=== PATIENT | female | born 1990 | race African-American/Black ===

== ENCOUNTER 2022-08-27 21:35 | Emergency (ER) | payer MEDICAID, SELFPAY ==
--- NOTE | ~2022-08-27 | XR_ITS ---
XR chest 2V DATE: 08/27/2022 22:06 INDICATION: Chest pain, left arm pain, intermittent shortness of breath for a week. TECHNIQUE: PA and lateral views COMPARISON: None FINDINGS: Normal heart size. No hilar or mediastinal enlargement. No pulmonary infiltrate or consolid ation, pleural effusion or pulmonary vascular congestion or pneumothorax. IMPRESSION: Negative chest Reviewed, dictated and finalized at location A. IMPRESSION: Negative chest
--- NOTE | 2022-08-27 21:37 | ECG_ITS ---
Measurements Intervals [place] Rate: 93 P: 74 CT: 149 QRS: 28 QRSD: 86 T: 21 QT: 334 QTc: 415 Interpretive Statements SINUS RHYTHM NORMAL ECG NO PREVIOUS ECG AVAILABLE FOR COMPARISON Electronically Signed On 08-28-2022 15:20:01 CDT by Martin Paredes M.D.
[2022-08-27 21:41] VITALS: BP 150/93; PULSE 102; RESP 20; TEMP 35.9; O2SAT 100
[2022-08-27 21:53] LABS: Basophils Absolute Auto 0.1 K/mm3 (0.0-0.1); Basophils Percent Auto 0.6 % (0.2-1.2); Eosinophils Absolute Auto 0.3 K/mm3 (0-0.3); Eosinophils Percent Auto 3.4 % (0-4.4); Hemoglobin 10.3 g/dL (12.0-15.0); Immature Granulocyte Absolute 0.01 K/mm3 (0.00-0.031); Immature Granulocyte Percent A 0.1 % (0-0.5); Lymphocytes Absolute Auto 4.74 K/mm3 (0.9-3.2); Mean Corpuscular HGB Conc 30.3 g/dl (32-36); Mean Corpuscular Hemoglobin 23.4 pg (26-34); Mean Corpuscular Volume 77.1 fl (80-100); Mean Platelet Volume 9.4 fl (7.4-10.4); Monocytes Absolute Auto 0.5 K/mm3 (0.1-0.6); Monocytes Percent Auto 6.6 % (2.6-8.5); Neutrophils Absolute Auto 2.6 K/mm3 (1.3-6.7); Neutrophils Percent Auto 31.3 % (45.5-73.1); Platelet Count Result 452 k/mm3 (150-375); Red Blood Count 4.41 M/mm3 (4.2-5.4); Red Cell Distribution Width 17.2 % (11.5-14.5); White Blood Count 8.2 K/mm3 (4.5-10.0)
[2022-08-27 22:03] LABS: Alanine Aminotransferase 23 U/L (6-35); Albumin Level 4.7 g/dL (3.5-5.1); Alkaline Phosphatase 93 U/L (38-126); Anion Gap 9 mmol/L (8-16); Aspartate Amino Transferase 27 U/L (14-36); Bilirubin,Total 0.5 mg/dL (0.2-1.3); Blood Urea Nitrogen 7 mg/dL (7-17); Calcium 8.9 mg/dL (8.4-10.2); Carbon Dioxide 23 mmol/L (22-30); Chloride 106 mmol/L (98-107); Estimated CRCL calculation 93 ml/min; Estimated Glomerular Filt Rate > 60; Glucose 91 mg/dL (65-110); Lipase 107 U/L (23-300); Potassium 3.9 mmol/L (3.4-5.0); Sodium 138 mmol/L (137-145)
[2022-08-27 22:04] LABS: INR 1.1; Prothrombin Time 13.6 Seconds (11.1-14.7)
[2022-08-27 22:05] LABS: Partial Thromboplastin Time 36.8 SECONDS (22.3-36.8)
[2022-08-27 22:15] LABS: Troponin I < 0.012 ng/mL (0.000-0.034)
--- NOTE | 2022-08-27 23:35 | PC.NURSE ---
patient states she is tired of waiting and left from triage area
== END 2022-08-27 23:48 | disposition left against medical advice (07) ==
PROVIDERS: Emergency Provider Emergency Medicine
DX: R07.9 Chest pain, unspecified (principal)
CPT/HCPCS: 36415; 71046; 80053; 83690; 84484; 85025; 85610; 85730; 93005; 99199

== ENCOUNTER 2024-05-10 14:07 | Outpatient (CLI) | payer OTHER, SELFPAY ==
--- NOTE | ~2024-05-10 | US_ITS ---
EXAMINATION: US OB <= 14 weeks fetus DATE: 05/10/2024 14:40 INDICATION: Amenorrhea, unspecified. TECHNIQUE: Real-time transabdominal pelvic ultrasound was performed. COMPARISON: None. FINDINGS: The uterus measures 12.0 x 7.9 x 9.7 cm. There is an intrauterine gestational sac. The crown ru mp length measures 5.4 cm, which correlates with an estimated gestational age of 12 weeks and 0 day(s ) (+/-) 1 week(s) and 1 day(s). heart motion is identified measuring 150 beats per minute (bpm) by M-mode Doppler. The right ovary measures 4.0 x 1.7 x 2.7 cm. The left ovary measures 5.2 x 1.8 x 4.1 cm. There is no free fluid in the pelvis. IMPRESSION: 1. Single living intrauterine gestation with estimated date of delivery of 11/22/2024. Reviewed, dictated and finalized at location A. REPAIRER IMPRESSION: 1. Single living intrauterine gestation with estimated date of delivery of 11/22.
== END 2024-05-10 14:08 | disposition home or self-care (01) ==
PROVIDERS: PCP Emergency Medicine; Visit Provider Nurse Practitioner Obstetrics & Gynecology
DX: Z34.91 Encounter for supervision of normal pregnancy, unspecified, first trimester (principal); Z3A.12 12 weeks gestation of pregnancy
CPT/HCPCS: 76801

== ENCOUNTER 2024-06-14 12:30 | Outpatient (CLI) | payer OTHER, SELFPAY ==
[2024-06-14 13:01] LABS: Basophils Percent Auto 0.4 % (0.2-1.2); Eosinophils Absolute Auto 0.1 K/mm3 (0-0.3); Eosinophils Percent Auto 1.5 % (0-4.4); Hematocrit 34.6 % (37.0-47.0); Immature Granulocyte Absolute 0.03 K/mm3 (0.00-0.031); Immature Granulocyte Percent A 0.4 % (0-0.5); Lymphocytes Absolute Auto 2.73 K/mm3 (0.9-3.2); Mean Corpuscular HGB Conc 31.8 g/dl (32-36); Mean Corpuscular Hemoglobin 26.3 pg (26-34); Mean Corpuscular Volume 82.8 fl (80-100); Mean Platelet Volume 9.8 fl (7.4-10.4); Monocytes Absolute Auto 0.6 K/mm3 (0.1-0.6); Monocytes Percent Auto 8.3 % (2.6-8.5); Neutrophils Absolute Auto 4.1 K/mm3 (1.3-6.7); Neutrophils Percent Auto 53.4 % (45.5-73.1); Platelet Count Result 342 k/mm3 (150-375); Red Blood Count 4.18 M/mm3 (4.2-5.4); Red Cell Distribution Width 17.7 % (11.5-14.5); White Blood Count 7.6 K/mm3 (4.5-10.0)
[2024-06-14 13:09] LABS: Add Urine Microscopic? YES; Appearance Urine Cloudy (Clear); Bacteria Urine 3+ /hpf; Bilirubin Urine Negative (Negative); Blood Urine Negative (Negative); Color Urine Dark Yellow (Yellow); Glucose Urine UA Negative (Negative); Ketones Urine Trace mg/dL (Negative); Leukocyte Esterase Ur Trace LEU/UL (Negative); Nitrate Urine Negative (Negative); Non Pathogenic Casts 0-2; Protein Urine Trace mg/dL (Negative); RBC Urine 0-2 /hpf (0-2); Specific Grav Ur 1.034 (1.001-1.035); Squamous Epithelial Cell Urine Many /hpf (Few)
[2024-06-14 13:43] LABS: Hepatitis B Surface Antigen Negative (Negative); Rubella IgG Antibody 40.4 IU/ML
[2024-06-14 13:51] LABS: HIV 1/2 Ab P24 Ag Result Negative (Negative)
[2024-06-14 14:00] LABS: Hepatitis C Virus Antibody Negative (Negative)
[2024-06-14 14:25] LABS: Rapid Plasma Reagin Non-Reactive (NonReactive)
--- OUTSIDE RECORDS SUMMARY | 2024-06-15 04:53 | XMS_ITS | CONTINUITY OF CARE DOCUMENT ---
Author Name melly pickard Address Unknown Organization [facility] Address [address] [place] [address] Phone [phone] Care Team Providers Care Edging Machine Operator Name Role Phone melly pickard Unavailable Unavailable INSURANCE PROVIDERS Payer name Policy type / Coverage type [place] red democrat ID [id number] PAY
--- OUTSIDE RECORDS SUMMARY | 2024-06-15 04:53 | XMS_ITS | Clinical Summary ---
Author Organization [facility] Address [address] [place] [address] Phone Care Team Providers Care Hot Roller Name Role Phone Provider, None Primary Care Provider Unavailabl e Allergies No known active allergies Medications No known medications Social History Tobacco Use Types Packs/Day Years Used Date Smoking Tobacco: Every Day Cigarettes Smokeless Tobacco: Never Alcohol Use Standard Drinks/Week Comments Yes 0 (1 standard drink = 0.6 oz pur e alcohol) socially Comments No Sex and Gender Information Value Date Recorded Sex Assigned at Not on file Legal Sex Female 8:06 AM CDT Gender Identity Not on file Sexual Orientation Not on file Last Filed Vital Signs Vital Sign Reading Time Taken Comments Blood Pressure 116/82 10/27/2021 12:30 PM CDT Pulse 88 10/27/2021 12:30 PM CDT Temperature 36.1 ??C (97 ??F) 10/27/2021 8:16 AM CDT Respiratory Rate 19 10/27/2021 12:30 PM CDT Oxygen Saturation 100% 10/27/2021 12:30 PM CDT Inhaled Oxygen Concentration - - Weight 83.9 kg (185 lb) 10/27/2021 8:08 AM CDT Height 175.3 cm (5' 9 ) 10/27/2021 8:08 AM CDT Body Mass Index 27.32 10/27/2021 8:08 AM CDT Plan of Treatment Health Maintenance Due Date Last Done Comments Hepatitis C Virus (HCV) Screening 1988 TdaP Immunization 1988 Hepatitis B Immunization (1 of 3 - 19+ 3-dose series) 2007 Pap Smear 2009 Cervical Cancer Screening (CCS) 2018 HPV/Cotest 2018 Influenza Immunization (#1) 2024 SARS-COV-2 Immunization ( - 2023- season) 2024 Respiratory Syncytial Virus (RSV) Immunization (Adult) (1 - 1-dose 75+ series) 2063 DTaP/Tdap/Td Immunization Discontinued 2004, 01/26/1994, 03/24/1989, Additional history exists Meningococcal Immunization (ACWY) Aged Out No longer eligible based on patient's age to complete this topic Pneumococcal Immunization Combined Aged Out No longer eligible based on patient's age to complete this topic Rotavirus Immunization Aged Out No lo nger eligible based on patient's age to complete this topic Insurance MEDICAID [employer] Care Teams Hot Roller Relationship Specialty Start Date End Date Provider, None [place] PCP - General 10/27/21
--- OUTSIDE RECORDS SUMMARY | 2024-06-15 04:53 | XMS_ITS | Clinical Summary ---
Author Organization [facility] Address [address] [place] [address]. [place] [address] [place] [address] Care Team Providers Care Embosser Operator Name Role Phone None, Provider MD Primary Care Provider Unavaila ble Allergies No known active allergies Medications No known medications Social History Tobacco Use Types Packs/Day Years Used Date Smoking Tobacco: Every Day Cigarettes Smokeless Tobacco: Never Alcohol Use Standard Drinks/Week Comments Never 0 (1 standard drink = 0.6 oz pur e alcohol) Comments No Sex and Gender Information Value Date Recorded Sex Assigned at Not on file Legal Sex Female 8:23 PM CDT Gender Identity Not on file Sexual Orientation Not on file Last Filed Vital Signs Vital Sign Reading Time Taken Comments Blood Pressure 133/70 10/16/2021 7:26 PM CDT Pulse 81 10/16/2021 7:26 PM CDT Temperature 36.7 ??C (98 ??F) 10/16/2021 3:08 PM CDT Respiratory Rate 16 10/16/2021 3:08 PM CDT Oxygen Saturation 98% 10/16/2021 7:26 PM CDT Inhaled Oxygen Concentration - - Weight 86.2 kg (190 lb) 10/16/2021 3:08 PM CDT Height 175.3 cm (5' 9 ) 10/16/2021 3:08 PM CDT Body Mass Index 28.06 10/16/2021 3:08 PM CDT Plan of Treatment Health Maintenance Due Date Last Done Comments Cervical Cancer Screening Pap Smear (Age 30 to 64) Every 3 Years 1988 Annual Physical 1991 Pneumococcal Vaccine: Pediatrics (0 to 5 Years) and At-Risk Patients (6 to 64 Years) (1 of 2 - PCV) 1994 DTaP, Tdap and Td Vaccines (5 - Tdap) 01/23/2005 01/22/2005, 01/26/1994, 03/24/1989, Additional history exists Hepatitis C 2006 Hepatitis B Vaccines (1 of 3 - 19+ 3-dose series) 2007 Cervical Cancer Screening Pap with HPV Testing (Age 30 to 64) Every 5 Years 2018 Cervical Cancer Screening with HPV 2018 COVID-19 Vaccine (2023- season) 2024 Influenza Adult (#1) 2024 HPV Vaccines Aged Out No longer eligi ble based on patient's age to complete this topic Meningococcal Vaccine Aged Out No danielle neptali eligible based on patient's age to complete this topic RSV Immunizations Under 20 Months Aged Out No longer eligible based on patient's age to complete this topic Insurance Care Teams Embosser Operator Relationship Specialty Start Date End Date None, Provider, PCP - General 10/16/21
--- OUTSIDE RECORDS SUMMARY | 2024-06-15 04:53 | XMS_ITS | Referral Summary ---
Author Organization [address] Address [address] [place] [id number] Care Team Providers Care Liability Analyst Name Role Phone Unknown, Notinfile Primary Care Provider Unavail able Allergies No known active allergies Medications buPROPion XL (WELLBUTRIN XL) 150 mg 24 hr tablet Take 1 tablet (150 mg total) by mouth every morning 03/18/2023 Active Active Problems No known active problems Social History Tobacco Use Types Packs/Day Years Used Date Smoking Tobacco: Never Assessed Comments Unknown Sex and Gender Information Value Date Recorded Sex Assigned at Not on file Legal Sex Female 12:05 PM SAND MILL OPERATOR FACING SAND Gender Identity Not on file Sexual Orientation Not on file Last Filed Vital Signs Vital Sign Reading Time Taken Comments Blood Pressure 132/82 05/02/2023 9:22 AM SAND MILL OPERATOR FACING SAND Pulse 86 05/02/2023 9:22 AM SAND MILL OPERATOR FACING SAND Temperature 36.8 ??C (98.3 ??F) 05/02/2023 9:22 AM CS T Respiratory Rate 18 05/02/2023 9:22 AM SAND MILL OPERATOR FACING SAND Oxygen Saturation 100% 05/02/2023 9:22 AM SAND MILL OPERATOR FACING SAND Inhaled Oxygen Concentration - - Weight 115.3 kg (254 lb 4.8 oz) 05/02/2023 9:22 AM SAND MILL OPERATOR FACING SAND Height 175.3 cm (5' 9.02 ) 05/02/2023 9:22 AM CS T Body Mass Index 37.54 05/02/2023 9:22 AM SAND MILL OPERATOR FACING SAND Plan of Treatment Not on file Insurance [facility] CHOICE PLUS [facility] H[facility]PPO Address: [place] [address] Care Teams Liability Analyst Relationship Specialty Start Date End Date Unknown, Notinfile PCP - General 05/02/23
--- OUTSIDE RECORDS SUMMARY | 2024-06-15 04:53 | XMS_ITS | Clinical Summary ---
Author Organization [address] Address [address] [place] [id number] Care Team Providers Care Program Mgr Name Role Phone Unknown, Notinfile Primary Care [...] on file Legal Sex Female 12:05 PM DISTILLING DEPARTMENT SUPERVISOR Gender Identity Not on file Sexual Orientation Not on file Obstetrics History Last Filed Vital Signs Vital Sign Reading Time Taken Comments Blood Pressure 132/82 05/02/2023 9:22 AM DISTILLING DEPARTMENT SUPERVISOR Pulse 86 05/02/2023 9:22 AM DISTILLING DEPARTMENT SUPERVISOR Temperature 36.8 ??C (98.3 ??F) 05/02/2023 9:22 AM CS T Respiratory Rate 18 05/02/2023 9:22 AM DISTILLING DEPARTMENT SUPERVISOR Oxygen Saturation 100% 05/02/2023 9:22 AM DISTILLING DEPARTMENT SUPERVISOR Inhaled Oxygen Concentration - - Weight 115.3 kg (254 lb 4.8 oz) 023 9:22 AM DISTILLING DEPARTMENT SUPERVISOR Height 175.3 cm (5' 9.02 ) 05/02/2023 9:22 AM CS T Body Mass Index 37.54 05/02/2023 9:22 AM DISTILLING DEPARTMENT SUPERVISOR Plan of Treatment Health Maintenance Due Date Last Done Comments Cervical Cancer Screening 1988 Depression Screening 1988 Hepatitis C Screening 1988 Varicella Vaccines (1 of 2 - 13+ 2-dose series) 2001 DTaP/Tdap/Td Vaccine (5 - Tdap) 01/23/2005 01/22/2005, 01/26/1994, 03/24/1989, Additional history exists Hepatitis B Screening 2006 Regular Well Visit/Exam 18-64 2006 Influenza Vaccine (#1) 2024 HPV Vaccines Aged Out No longer eligi ble based on patient's age to complete this topic Pneumococcal vaccine <65 Aged Out No longer eligible based on patient's age to complete this topic Insurance [facility] CHOICE PLUS Care Teams Program Mgr Relationship Specialty Start Date End Date Unknown, Notinfile PCP - General 05/02/23
[2024-06-17 07:34] LABS: Hematocrit 35.6 % (35.0-45.0); Hemoglobin 11.1 g/dL (11.7-15.5); MCH 26.6 pg (27.0-33.0); MCV 85.2 fL (80.0-100.0); RDW 17.9 % (11.0-15.0); Red Blood Cell Count 4.18 Million/uL (3.80-5.10)
== END 2024-06-14 12:31 | disposition home or self-care (01) ==
LOC: ANHLAB 12:31
PROVIDERS: Visit Provider Obstetrics & Gynecology
DX: Z34.90 Encounter for supervision of normal pregnancy, unspecified, unspecified trimester (principal); Z3A.00 Weeks of gestation of pregnancy not specified
CPT/HCPCS: 36415; 81001; 83021; 85025; 86592; 86703; 86762; 86787; 86803; 86850; 86900; 86901; 87086; 87340; G0432

== ENCOUNTER 2024-09-24 09:15 | Outpatient (CLI) | payer OTHER, SELFPAY ==
[2024-09-24 09:42] LABS: Basophils Percent Auto 0.2 % (0.2-1.2); Eosinophils Absolute Auto 0.2 K/mm3 (0-0.3); Eosinophils Percent Auto 1.8 % (0-4.4); Hematocrit 27.9 % (37.0-47.0); Hemoglobin 8.7 g/dL (12.0-15.0); Immature Granulocyte Absolute 0.12 K/mm3 (0.00-0.031); Immature Granulocyte Percent A 1.4 % (0-0.5); Lymphocytes Absolute Auto 2.43 K/mm3 (0.9-3.2); Lymphocytes Percent Auto 29.3 % (18.3-44.2); Mean Corpuscular HGB Conc 31.2 g/dl (32-36); Mean Corpuscular Hemoglobin 25.4 pg (26-34); Mean Corpuscular Volume 81.6 fl (80-100); Mean Platelet Volume 9.2 fl (7.4-10.4); Monocytes Absolute Auto 0.6 K/mm3 (0.1-0.6); Monocytes Percent Auto 6.7 % (2.6-8.5); Neutrophils Percent Auto 60.6 % (45.5-73.1); Platelet Count Result 343 k/mm3 (150-375); Red Blood Count 3.42 M/mm3 (4.2-5.4); Red Cell Distribution Width 14.6 % (11.5-14.5); White Blood Count 8.3 K/mm3 (4.5-10.0)
[2024-09-24 09:45] VITALS: BP 128/71; PULSE 86
--- OUTSIDE RECORDS SUMMARY | 2024-09-24 09:50 | XMS_ITS | Clinical Summary ---
Author Organization [facility] Address [address] [place] [address] Phone Care Team Providers Care Battery Vent Plug Inserter Name Role Phone Provider, None Primary Care [...] 88 10/27/2021 12:30 PM CDT Temperature 36.1 C (97 F) 10/27/2021 8:16 AM CDT Respiratory Rate 19 [...] of 3 - 19+ 3-dose series) 2007 Influenza Immunization (#1) 2024 SARS-COV-2 Immunization (2023-25 season) 2024 Respiratory Syncytial Virus (RSV) Immunization [...] Insurance MEDICAID [employer] Care Teams Battery Vent Plug Inserter Relationship Specialty Start Date End Date Provider, None [place] PCP - General 10/27/21
--- OUTSIDE RECORDS SUMMARY | 2024-09-24 09:50 | XMS_ITS | CONTINUITY OF CARE DOCUMENT ---
Author Name melly pickard Address Unknown Organization [facility] Address [address] [place] [address] Phone [phone] Care Team Providers Care Supervisor In Charge Name Role Phone melly pickard Unavailable Unavailable INSURANCE PROVIDERS Payer name Policy type / Coverage type [place] red libertarian ID [id number] PAY
--- OUTSIDE RECORDS SUMMARY | 2024-09-24 09:50 | XMS_ITS | Clinical Summary ---
Author Organization [facility] Address [address] [place] [id number] Care Team Providers Care Uniform Designer Name Role Phone None, Provider MD Primary [...] 81 10/16/2021 7:26 PM CDT Temperature 36.7 C (98 F) 10/16/2021 3:08 PM CDT Respiratory Rate 16 [...] Every 3 Years 1988 Annual Physical 1991 DTaP, Tdap and Td Vaccines (5 - Tdap) 01/23/2005 01/22/2005, 01/26/1994, 03/24/1989, Additional history exists Hepatitis C 2006 Hepatitis B Vaccines (1 of 3 - 19+ 3-dose series) 2007 Pneumococcal Vaccine: Pediatrics (0 to 5 Years) and At-Risk Patients (6 to 49 Years) (1 of 2 - PCV) 2007 Cervical Cancer Screening Pap with HPV Testing (Age 30 to 64) Every 5 Years 2018 Cervical Cancer Screening with HPV 2018 COVID-19 Vaccine ( season) 2024 HPV Vaccines Aged Out No longer eligi ble based on patient's age to complete this topic Meningococcal B Vaccine Aged Out No l onger eligible based on patient's age to complete this topic Meningococcal Vaccine Aged Out No danielle neptali eligible based on patient's age to complete this topic RSV Immunizations Under 20 Months Aged Out No longer eligible based on patient's age to complete this topic Insurance Care Teams Uniform Designer Relationship Specialty Start Date End Date None, Provider, PCP - General 10/16/21
--- OUTSIDE RECORDS SUMMARY | 2024-09-24 09:50 | XMS_ITS | Clinical Summary ---
Author Organization [facility] Address [address] [place] [address] Phone Care Team Providers Care Woodworking Machine Feeder Name Role Phone Unavailable Primary Care Provider Unavailabl e Encounters Date Type Department Care Team Description 09/04/2024 External Device Data STL ABSTRACTION Provider, Abstract 08/14/2024 External Device Data STL ABSTRACTION Provider, Abstract 08/14/2024 External Device Data STL ABSTRACTION Provider, Abstract 07/24/2024 External Device Data STL ABSTRACTION Provider, Abstract 07/19/2024 1:45 PM CUSTOMER ACCOUNT EXECUTIVE - 07/19/2024 11:59 PM CUSTOMER ACCOUNT EXECUTIVE Hospital Encounter [facility] Maternal and Health [facility] [address] [place] [phone] Quintin Corey MD Discharge Disposition: Home or Self Care from Last 3 Months Social History Tobacco Use Types Packs/Day Years Used Date Smoking Tobacco: Never Assessed Comments Unknown Sex and Gender Information Value Date Recorded Sex Assigned at Not on file Legal Sex Female 11:51 PM CDT Gender Identity Not on file Sexual Orientation Not on file Plan of Treatment Health Maintenance Due Date Last Done Comments DTAP/TDAP/TD VACCINES (1 - Tdap) 2007 HEPATITIS B VACCINES (1 of 3 - 19+ 3-dose series) 2007 HPV/Cotest (21-29) 2009 CERVICAL CANCER SCREENING 2018 HPV/Cotest (30-65) 2018 PAP SMEAR 2018 INFLUENZA VACCINE (#1) 2023 HPV VACCINES Aged Out No longer eligi ble based on patient's age to complete this topic Procedures Procedure Name Priority Date/Time Associated Diagnosis Comments US OB DETAIL SINGLE GEST Routine 07/19/2024 3:06 PM CUSTOMER ACCOUNT EXECUTIVE Advanced maternal age in multigravida, second trimester screening for malformation using ultrasonics from Last 3 Months Results * US OB DETAIL SINGLE GEST (07/19/2024 3:06 PM CUSTOMER ACCOUNT EXECUTIVE) Anatomical Region Laterality Modality Pelvis Ultrasound 07/19/2024 1:58 PM CUSTOMER ACCOUNT EXECUTIVE Narrative 07/19/2024 3:10 PM CUSTOMER ACCOUNT EXECUTIVE STL COMP ----- Pat. Name: JESUSITA SANTA Study Date: 07/19/2024 1:58pm Pat. NO: [id number] Referring MD: QUINTIN COREY MD Site: [place] [facility] Policy Analyst: Bree Dahl RDMS : 1990 Age: 34 ----- INDICATION ----- Anatomy Survey Maternal Obesity (BMI<40) Complicating Advanced Maternal Age (AMA), Multigravida CODING ----- Diagnoses Z3A.21: Weeks of gestation O09.892: Supervision of other high risk pregnancies Z36.3: Encounter for screening for malformations Z3A.21: Weeks of gestation O99.212: Obesity complicating O09.522: Supervision of elderly multigravida Procedures 83173: Ultrasound, uterus, real time with image documentation, and maternal evaluation plus detailed anatomic examination, transabdominal approach HISTORY ----- OB History 4. Para 2 MATERNAL ASSESSMENT ----- Physical Exam Initial weight 104 kg, 230 lb. Initial BMI 33.97 kg/m METHOD ----- Transabdominal ultrasound examination ----- Hylton . Number of fetuses: 1 DATING ----- Method of dating: based on stated ARIANA GA by prior assessment 21 w + 2 d ARIANA by prior assessment: 11/27/2024 Ultrasound examination on: 07/19/2024 GA by U/S based upon: AC, BPD, EFW, Femur, HC GA by U/S 21 w + 5 d ARIANA by U/S: 11/24/2024 Assigned: based on stated ARIANA, selected on 07/19/2024 Assigned GA 21 w + 2 d Assigned ARIANA: 11/27/2024 BIOMETRY ----- BPD 50.6 mm 21w 2d 50% Hadlock OFD 71.3 mm 23w 5d 98% Madeleine HC 195.9 mm 21w 6d 63% Hadlock Cerebellum tr 21.6 mm 21w 1d 37% Araujo Nuchal fold 5.0 mm AC 168.0 mm 21w 6d 60% Hadlock Femur 37.8 mm 22w 1d 68% Hadlock Humerus 37.7 mm 23w 2d 96% Madeleine HC / AC 1.17 54% Nicolaides Weight Calculation: EFW 459 g 21w 5d 75% Hadlock EFW (lb,oz) 1 lb 0 oz EFW by Hadlock ([id number]) Head / Face / Neck Biometry: Laboratory Courier 3.5 mm CM 4.8 mm 33% Nicolaides Inner IOD 14.5 mm Nasal 7.2 mm bone Extremities / Bony Struc Biometry: FL / BPD 0.75 FL / HC 0.19 FL / AC 0.23 Tibia 31.7 mm 21w 5d 67% Madeleine GENERAL EVALUATION ----- Cardiac activity present. FHR 126 bpm. movements: present. Presentation: breech Placenta: Placental site: posterior Umbilical cord: Cord vessels: 3 vessel cord. Insertion site: placental insertion: normal Amniotic fluid: Amount of AF: normal amount. MVP 3.1 cm ANATOMY ----- The following structures appear normal: Head / Neck Cranium. Lateral ventricles. Choroid plexus. Midline falx. Cavum septi pellucidi. Cerebellum. Cisterna magna. Thalami. Nuchal fold. Face Lips. Profile. Nose. Palate. Orbits. Heart / Thorax 4-chamber view. RVOT view. LVOT view. 3-vessel view. 7-uzousc-edyhcde view. Situs. Aortic arch view. Ductal arch view. Superior vena cava. Inferior vena cava. High short axis view. Cardiac rhythm. Diaphragm. Abdomen Abdominal wall. Cord insertion. Stomach. Kidneys. Bladder. Genitals. Spine Cervical spine. Thoracic spine. Lumbar spine. Sacral spine. Extremities / Arms. Right hand. Left hand. Legs. Right foot. Left foot. Skeleton sex: female. MATERNAL STRUCTURES ----- Cervix Visualized Approach - Transabdominal: Cervical length 42.0 mm Right Ovary Normal Size 31 mm x 22 mm x 20 mm. Vol 7.3 cm Left Ovary Normal Size 31 mm x 28 mm x 18 mm. Vol 8.4 cm GROWTH OVERVIEW ----- Exam date GA BPD (mm) HC (mm) AC (mm) FL (mm) HL (mm) EFW (g) 07/19/2024 21w 2d 50.6 50% 195.9 63% 168.0 60% 37.8 68% 37.7 96% 459 75% COMMENT ----- Patient's name and date of were verified by the health sanitarian before the exam IMPRESSION ----- IUP at 21w 2d AGA growth with EFW 459 g (75%) No major structural malformations are identified within the limits of ultrasound. No soft markers of aneuploidy are visualized. Normal amniotic fluid volume, MVP 3.1 cm Normal cervical length, 42 mm Placenta is posterior with no previa Recommendations: - Recommend growth at 32-36 weeks and as otherwise clinically indicated (location at discretion of primary provider) Procedure Note Genet Ibarra MD - 07/19/2024 STL COMP ----- Pat. Name:Carolee SANTA Date:07/19/2024 1:58pm Pat. NO: [id number] MD:QUINTIN COREY MD [facility]Bree Dahl RDMS :1990Age:34 ----- INDICATION ----- Anatomy Survey Maternal Obesity (BMI<40) Complicating Advanced Maternal Age (AMA), Multigravida CODING ----- Diagnoses Z3A.21: Weeks of gestation O09.892: Supervision of other high riskpregnancies Z36.3: Encounter for screening formalformations Z3A.21: Weeks of gestation O99.212: Obesity complicating O09.522: Supervision of elderly multigravida Procedures [id number]: Ultrasound, uterus, real time withimage documentation, and maternal evaluation plus detailed anatomic examination,transabdominal approach HISTORY ----- OB History 4. Para 2 MATERNAL ASSESSMENT ----- Physical Exam Initial weight 104 kg, 230 lb. Initial BMI 33.97kg/m METHOD ----- Transabdominal ultrasound examination ----- Hylton . Number of fetuses: 1 DATING ----- Method of dating:based on stated ARIANA GA by prior [id number] w + 2 d ARIANA by prior assessment:11/27/2024 Ultrasound examination on:07/19/2024 GA by U/S based upon:AC, BPD, EFW, Femur, HC GA by U/S21 w + 5 d ARIANA by U/S:11/24/2024 Assigned:based on stated ARIANA, selected on 07/19/2024 Assigned GA21 w + 2 d Assigned ARIANA:11/27/2024 BIOMETRY ----- BPD 50.6 mm 21w 2d50% Hadlock OFD 71.3 mm 23w 5d98% Madeleine HC 195.9 mm 21w 6d63% Hadlock Cerebellum tr 21.6 mm 21w 1d37% Araujo Nuchal fold 5.0 mm AC 168.0 mm 21w 6d60% Hadlock Femur 37.8 mm 22w 1d68% Hadlock Humerus 37.7 mm 23w 2d96% Madeleine HC / AC 1.17 54%Nicolaides Weight Calculation: EFW 459 g 21w 5d 75%Hadlock EFW (lb,oz) 1 lb 0 oz EFW by Hadlock ([id number]) Head / Face / Neck Biometry: Laboratory Courier 3.5 mm CM 4.8 mm 33%Nicolaides Inner IOD 14.5 mm Nasal 7.2 mm bone Extremities / Bony Struc Biometry: FL / BPD 0.75 FL / HC 0.19 FL / AC 0.23 Tibia 31.7 mm 21w 5d 67%Madeleine GENERAL EVALUATION ----- Cardiac activity present. FHR 126 bpm. movements: present.Presentation: breech Placenta: Placental site: posterior Umbilical cord: Cord vessels: 3 vessel cord. Insertion site: placentalinsertion: normal Amniotic fluid: Amount of AF: normal amount. MVP 3.1 cm ANATOMY ----- The following structures appear normal: Head / Neck Cranium. Lateral ventricles. Choroid plexus.Midline falx. Cavum septi pellucidi. Cerebellum. Cisterna magna. Thalami. Nuchal fold. Face Lips. Profile. Nose. Palate. Orbits. Heart / Thorax 4-chamber view. RVOT view. LVOT view. 3-vesselview. 8-wyplht-scttttw view. Situs. Aortic arch view. Ductal arch view. Superior vena cava. Inferiorvena cava. High short axis view. Cardiac rhythm. Diaphragm. Abdomen Abdominal wall. Cord insertion. Stomach. Kidneys.Bladder. Genitals. Spine Cervical spine. Thoracic spine. Lumbar spine.Sacral spine. Extremities / Arms. Right hand. Left hand. Legs. Right foot.Left foot. Skeleton sex: female. MATERNAL STRUCTURES ----- Cervix Visualized Approach - Transabdominal: Cervical length 42.0mm Right Ovary Normal Size 31 mm x 22 mm x 20 mm. Vol 7.3 cm Left Ovary Normal Size 31 mm x 28 mm x 18 mm. Vol 8.4 cm GROWTH OVERVIEW ----- Exam date GA BPD (mm) HC (mm) AC (mm) FL(mm) HL (mm) EFW (g) 07/19/2024 21w 2d 50.6 50% 195.9 63% 168.0 60%37.8 68% 37.7 96% 459 75% COMMENT ----- Patient's name and date of were verified by the health sanitarian beforethe exam IMPRESSION ----- IUP at 21w 2d AGA growth with EFW 459 g (75%) No major structural malformations are identified within the limitsof ultrasound. No soft markers of aneuploidy are visualized. Normal amniotic fluid volume, MVP 3.1 cm Normal cervical length, 42 mm Placenta is posterior with no previa Recommendations: - Recommend growth at 32-36 weeks and as otherwise clinically indicated(location at discretion of primary provider) us Quintin Corey MD ORDERABLES Final Result from Last 3 Months Insurance [facility] [id number]
[2024-09-24 09:52] LABS: Alanine Aminotransferase 47 U/L (6-35); Albumin Level 3.5 g/dL (3.5-5.1); Alkaline Phosphatase 99 U/L (38-126); Anion Gap 7 mmol/L (4-12); Aspartate Amino Transferase 33 U/L (14-36); Bilirubin,Total 0.2 mg/dL (0.2-1.3); Blood Urea Nitrogen 5 mg/dL (7-17); Calcium 8.1 mg/dL (8.4-10.2); Carbon Dioxide 19 mmol/L (22-30); Chloride 108 mmol/L (98-107); Estimated Glomerular Filt Rate > 60; Glucose 95 mg/dL (65-110); Potassium 3.6 mmol/L (3.4-5.0); Sodium 134 mmol/L (137-145); Uric Acid 3.2 mg/dL (2.5-7.5)
[2024-09-24 10:00] VITALS: BP 123/73; PULSE 87
[2024-09-24 10:08] LABS: Add Urine Microscopic? YES; Appearance Urine Clear (Clear); Bacteria Urine Rare /hpf; Bilirubin Urine Negative (Negative); Blood Urine Negative (Negative); Color Urine Yellow (Yellow); Glucose Urine UA Negative (Negative); Ketones Urine Negative (Negative); Leukocyte Esterase Ur Trace LEU/UL (Negative); Nitrate Urine Negative (Negative); Non Pathogenic Casts 0-2; Protein Urine Negative (Negative); RBC Urine 0-2 /hpf (0-2); Specific Grav Ur 1.004 (1.001-1.035); Squamous Epithelial Cell Urine Moderate /hpf (Few); Urobilinogen Urine 0.2 mg/dL (<2.0); pH Urine 6.5 (5.0-9.0)
[2024-09-24 10:12] LABS: Creatinine Urine 42.6 mg/dL; Total Protein Urine Random 16 mg/dL; Ur Ttl Prot Creatinine Ratio 0.38 mg/mg (0-0.20)
[2024-09-24 10:15] VITALS: BP 124/75; PULSE 87
[2024-09-24 10:30] VITALS: BP 123/65; PULSE 86
--- NOTE | 2024-09-24 10:32 | PC.NURSE ---
Dr Marie informed BP and lab results. Ok to sc home with PIH precautions and a 24 hour urine collections.
[2024-09-24 10:42] VITALS: BMI 38.5
== END 2024-09-24 10:42 | disposition home or self-care (01) ==
LOC: ANHOBOP 09:19 → ANHOBPP 09:25
PROVIDERS: Visit Provider Obstetrics & Gynecology
DX: O13.9 Gestational [pregnancy-induced] hypertension without significant proteinuria, unspecified trimester (principal); Z3A.00 Weeks of gestation of pregnancy not specified
CPT/HCPCS: 36415; 59025; 80053; 81001; 82570; 84156; 84550; 85025; 99199

== ENCOUNTER 2024-09-25 09:25 | Outpatient (NON) | payer OTHER, SELFPAY ==
[2024-09-25 09:25] VITALS: BMI 38.5
--- OUTSIDE RECORDS SUMMARY | 2024-09-25 10:07 | XMS_ITS | Clinical Summary ---
Author Organization [facility] Address [address] [place] [address] Phone Care Team Providers Care Builder'S Labourer Name Role Phone Provider, None Primary Care [...] Insurance MEDICAID [employer] Care Teams Builder'S Labourer Relationship Specialty Start Date End Date Provider, None [place] PCP - General 10/27/21
--- OUTSIDE RECORDS SUMMARY | 2024-09-25 10:07 | XMS_ITS | Referral Summary ---
Author Organization [address] Address [address] [place] [phone] Care Team Providers Care Bilingual Sales Consultant Name Role Phone Unknown, Notinfile Primary Care [...] on file Legal Sex Female 12:05 PM MANAGER CASINO Gender Identity Not on file Sexual Orientation Not on file Last Filed Vital Signs Vital Sign Reading Time Taken Comments Blood Pressure 132/82 05/02/2023 9:22 AM MANAGER CASINO Pulse 86 05/02/2023 9:22 AM MANAGER CASINO Temperature 36.8 C (98.3 F) 05/02/2023 9:22 AM MANAGER CASINO Respiratory Rate 18 05/02/2023 9:22 AM MANAGER CASINO Oxygen Saturation 100% 05/02/2023 9:22 AM MANAGER CASINO Inhaled Oxygen Concentration - - Weight 115.3 kg (254 lb 4.8 oz) 05/02/2023 9:22 AM MANAGER CASINO Height 175.3 cm (5' 9.02 ) 05/02/2023 9:22 AM CS T Body Mass Index 37.54 05/02/2023 9:22 AM MANAGER CASINO Plan of Treatment Not on file Insurance [facility] CHOICE PLUS [facility] HMO/PPO Address: [place] [address] Care Teams Bilingual Sales Consultant Relationship Specialty Start Date End Date Unknown, Notinfile PCP - General 05/02/23
--- OUTSIDE RECORDS SUMMARY | 2024-09-25 10:07 | XMS_ITS | CONTINUITY OF CARE DOCUMENT ---
Author Name melly pickard Address Unknown Organization [facility] Address [address] [facility] [address] [place] [address] Phone [phone] Care Team Providers Care Materials Handling Equipment Operator Name Role Phone melly pickard Unavailable Unavailable INSURANCE PROVIDERS Payer name Policy type / Coverage type Dale red green party ID [id number] PAY
--- OUTSIDE RECORDS SUMMARY | 2024-09-25 10:07 | XMS_ITS | Clinical Summary ---
Author Organization [facility] Address [address] [place] [address] Phone Care Team Providers Care Hot Mill Worker Name Role Phone Unavailable Primary Care Provider Unavailabl e Encounters Date Type Department Care Team Description 09/04/2024 External Device Data STL ABSTRACTION Provider, Abstract 08/14/2024 External Device Data STL ABSTRACTION Provider, Abstract 08/14/2024 External Device Data STL ABSTRACTION Provider, Abstract 07/24/2024 External Device Data STL ABSTRACTION Provider, Abstract 07/19/2024 1:45 PM SUPERVISOR TELEPHONE INFORMATION - 07/19/2024 11:59 PM SUPERVISOR TELEPHONE INFORMATION Hospital Encounter [facility] Maternal and Health [facility] [address] [place] [id number] Quintin Corey MD Discharge Disposition: Home or [...] DETAIL SINGLE GEST Routine 07/19/2024 3:06 PM SUPERVISOR TELEPHONE INFORMATION Advanced maternal age in multigravida, second trimester screening for malformation using ultrasonics from Last 3 Months Results * US OB DETAIL SINGLE GEST (07/19/2024 3:06 PM SUPERVISOR TELEPHONE INFORMATION) Anatomical Region Laterality Modality Pelvis Ultrasound 07/19/2024 1:58 PM SUPERVISOR TELEPHONE INFORMATION Narrative 07/19/2024 3:10 PM SUPERVISOR TELEPHONE INFORMATION STL COMP ----- Pat. Name: JESUSITA SANTA Study Date: 07/19/2024 1:58pm Pat. NO: [id number] Referring MD: QUINTIN COREY MD Site: [facility] Manager Utilization Management: Bree Dahl RDMS : 1990 Age: 34 ----- INDICATION ----- Anatomy Survey Maternal Obesity (BMI<40) Complicating Advanced Maternal Age (AMA), Multigravida CODING ----- Diagnoses Z3A.21: Weeks of gestation O09.892: Supervision of other high risk pregnancies Z36.3: Encounter for screening for malformations Z3A.21: Weeks of gestation O99.212: Obesity complicating O09.522: Supervision of elderly multigravida Procedures 64442: Ultrasound, uterus, real time with image documentation, [...] 1 lb 0 oz EFW by Hadlock ([id number]) Head / Face / Neck Biometry: Personal Lines Account Executive 3.5 mm CM 4.8 mm 33% Nicolaides [...] view. RVOT view. LVOT view. 3-vessel view. 1-xsccyq-qlxocgk view. Situs. Aortic arch view. Ductal arch [...] and date of were verified by the orchard hand before the exam IMPRESSION ----- IUP at [...] Pat. Name:Carolee SANTA Date:07/19/2024 1:58pm Pat. NO: [id number] MD:QUINTIN COREY [facility]ree Dahl RD[facility] :1990Age:34 ----- INDICATION ----- Anatomy Survey Maternal Obesity (BMI<40) Complicating Advanced Maternal Age (AMA), Multigravida CODING ----- Diagnoses Z3A.21: Weeks of gestation O09.892: Supervision of other high riskpregnancies Z36.3: Encounter for screening formalformations Z3A.21: Weeks of gestation O99.212: Obesity complicating O09.522: Supervision of elderly multigravida Procedures 23932: Ultrasound, uterus, real time withimage documentation, and maternal evaluation plus detailed anatomic examination,transabdominal approach HISTORY ----- OB History 4. Para 2 MATERNAL ASSESSMENT ----- Physical Exam Initial weight 104 kg, 230 lb. Initial BMI 33.97kg/m METHOD ----- Transabdominal ultrasound examination ----- [place] . Number of fetuses: 1 DATING ----- Method of dating:based on stated ARIANA GA by prior [id number] w + 2 d ARIANA by prior [...] 1 lb 0 oz EFW by Hadlock ([id number]) Head / Face / Neck Biometry: Personal Lines Account Executive 3.5 mm CM 4.8 mm 33%Nicolaides Inner [...] 4-chamber view. RVOT view. LVOT view. 3-vesselview. 8-xyzgdn-aopiddf view. Situs. Aortic arch view. Ductal arch [...] and date of were verified by the orchard hand beforethe exam IMPRESSION ----- IUP at 21w [...] Final Result from Last 3 Months Insurance [facility] [id number]
--- OUTSIDE RECORDS SUMMARY | 2024-09-25 10:07 | XMS_ITS | Clinical Summary ---
Author Organization [facility] Address [address] [place] [id number] Care Team Providers Care Travel Money Advisor Name Role Phone None, Provider MD Primary [...] to complete this topic Insurance Care Teams Travel Money Advisor Relationship Specialty Start Date End Date None, Provider, PCP - General 10/16/21
--- OUTSIDE RECORDS SUMMARY | 2024-09-25 10:08 | XMS_ITS | Clinical Summary ---
Author Organization [address] Address [address] [place] [address] Care Team Providers Care Esthetician Spa Name Role Phone Unknown, Notinfile Primary Care [...] on file Legal Sex Female 12:05 PM FELLER HAND Gender Identity Not on file Sexual Orientation Not on file Obstetrics History Last Filed Vital Signs Vital Sign Reading Time Taken Comments Blood Pressure 132/82 05/02/2023 9:22 AM FELLER HAND Pulse 86 05/02/2023 9:22 AM FELLER HAND Temperature 36.8 C (98.3 F) 05/02/2023 9:22 AM FELLER HAND Respiratory Rate 18 05/02/2023 9:22 AM FELLER HAND Oxygen Saturation 100% 05/02/2023 9:22 AM FELLER HAND Inhaled Oxygen Concentration - - Weight 115.3 kg (254 lb 4.8 oz) 023 9:22 AM FELLER HAND Height 175.3 cm (5' 9.02 ) 05/02/2023 9:22 AM CS T Body Mass Index 37.54 05/02/2023 9:22 AM FELLER HAND Plan of Treatment Health Maintenance Due Date [...] patient's age to complete this topic Insurance [facility] CHOICE PLUS Care Teams Esthetician Spa Relationship Specialty Start Date End Date Unknown, Notinfile PCP - General 05/02/23
[2024-09-25 11:04] LABS: Collection Time Urine 24 HOURS; Total Volume 24 Hour Urine 900 ml
[2024-09-25 11:05] LABS: Patient Weight 261 Lbs
[2024-09-25 11:28] LABS: Creatinine Clearance Urine 85.7 ml/min (75-125); Creatinine Urine 100.5 mg/dL; Serum Creat 0.55; Total Protein Urine 24 Hr 90 mg/24hr (28-141); Total Protein Urine Random 10 mg/dL
== END 2024-09-25 09:26 | disposition home or self-care (01) ==
LOC: ANHOBOP 09:32
PROVIDERS: Visit Provider Obstetrics & Gynecology
DX: Z34.90 Encounter for supervision of normal pregnancy, unspecified, unspecified trimester (principal); Z3A.00 Weeks of gestation of pregnancy not specified
CPT/HCPCS: 81050; 82575; 84156

== ENCOUNTER 2024-10-13 11:38 | Outpatient (CLI) | payer OTHER, SELFPAY ==
--- OUTSIDE RECORDS SUMMARY | 2024-10-13 11:41 | XMS_ITS | Clinical Summary ---
Author Organization [address] Address [address] [place] [phone] Care Team Providers Care Abstract Clerk Name Role Phone Unknown, Notinfile Primary Care [...] on file Legal Sex Female 12:05 PM SHEET METAL WORKER HELPER Gender Identity Not on file Sexual Orientation Not on file Obstetrics History Last Filed Vital Signs Vital Sign Reading Time Taken Comments Blood Pressure 132/82 05/02/2023 9:22 AM SHEET METAL WORKER HELPER Pulse 86 05/02/2023 9:22 AM SHEET METAL WORKER HELPER Temperature 36.8 C (98.3 F) 05/02/2023 9:22 AM SHEET METAL WORKER HELPER Respiratory Rate 18 05/02/2023 9:22 AM SHEET METAL WORKER HELPER Oxygen Saturation 100% 05/02/2023 9:22 AM SHEET METAL WORKER HELPER Inhaled Oxygen Concentration - - Weight 115.3 kg (254 lb 4.8 oz) 023 9:22 AM SHEET METAL WORKER HELPER Height 175.3 cm (5' 9.02 ) 05/02/2023 9:22 AM CS T Body Mass Index 37.54 05/02/2023 9:22 AM SHEET METAL WORKER HELPER Plan of Treatment Health Maintenance Due Date Last Done Comments Cervical Cancer Screening 1988 Depression Screening 1988 Hepatitis C Screening 1988 Varicella Vaccines (1 of 2 - 13+ 2-dose series) 2001 DTaP/Tdap/Td Vaccine (5 - Tdap) 01/23/2005 01/22/2005, 01/26/1994, 03/24/1989, Additional history exists Hepatitis B Screening 2006 Regular Well Visit/Exam 18-64 2006 Influenza Vaccine (Season Ended) 2025 HPV Vaccines Aged Out No longer eligi ble based on patient's age to complete this topic Pneumococcal vaccine <65 Aged Out No longer eligible based on patient's age to complete this topic Insurance [facility] CHOICE PLUS Care Teams Abstract Clerk Relationship Specialty Start Date End Date Unknown, Notinfile PCP - General 05/02/23
--- OUTSIDE RECORDS SUMMARY | 2024-10-13 11:41 | XMS_ITS | Encounter Summary ---
Author Organization [facility] Address [address] [place] [address] Care Team Providers Care Auto Bumper Straightener Name Role Phone Unavailable Primary Care Provider Unavailabl e Encounter Details Date Type Department Care Team (Late st Contact Info) Description 10/10/2024 External Device Data STL ABSTRACTION Provider, Abstract NO ADDRESS ON FILE Social History Tobacco Use Types Packs/Day Years Used Date Smoking Tobacco: Never Assessed Comments Unknown Sex and Gender Information Value Date Recorded Sex Assigned at Not on file Legal Sex Female 11:51 PM CDT Gender Identity Not on file Sexual Orientation Not on file documented as of this encounter Plan of Treatment Not on file documented as of this encounter Visit Diagnoses Not on filedocumented in this encounter
--- OUTSIDE RECORDS SUMMARY | 2024-10-13 11:41 | XMS_ITS | CONTINUITY OF CARE DOCUMENT ---
Author Name melly pickard Address Unknown Organization [facility] Address [address] [facility] [address] [place] [address] Phone [phone] Care Team Providers Care Plant Physiology Teacher Name Role Phone melly pickard Unavailable Unavailable INSURANCE PROVIDERS Payer name Policy type / Coverage type Ethel red libertarian ID [id number] PAY
--- OUTSIDE RECORDS SUMMARY | 2024-10-13 11:41 | XMS_ITS | Referral Summary ---
Author Organization [address] Address [address] [place] [phone] Care Team Providers Care Hydro Plant Site Manager Name Role Phone Unknown, Notinfile Primary Care [...] on file Legal Sex Female 12:05 PM FUEL SYSTEM MAINTENANCE WORKER Gender Identity Not on file Sexual Orientation Not on file Last Filed Vital Signs Vital Sign Reading Time Taken Comments Blood Pressure 132/82 05/02/2023 9:22 AM FUEL SYSTEM MAINTENANCE WORKER Pulse 86 05/02/2023 9:22 AM FUEL SYSTEM MAINTENANCE WORKER Temperature 36.8 C (98.3 F) 05/02/2023 9:22 AM FUEL SYSTEM MAINTENANCE WORKER Respiratory Rate 18 05/02/2023 9:22 AM FUEL SYSTEM MAINTENANCE WORKER Oxygen Saturation 100% 05/02/2023 9:22 AM FUEL SYSTEM MAINTENANCE WORKER Inhaled Oxygen Concentration - - Weight 115.3 kg (254 lb 4.8 oz) 05/02/2023 9:22 AM FUEL SYSTEM MAINTENANCE WORKER Height 175.3 cm (5' 9.02 ) 05/02/2023 9:22 AM CS T Body Mass Index 37.54 05/02/2023 9:22 AM FUEL SYSTEM MAINTENANCE WORKER Plan of Treatment Not on file Insurance [facility] CHOICE PLUS Care Teams Hydro Plant Site Manager Relationship Specialty Start Date End Date Unknown, Notinfile PCP - General 05/02/23
--- OUTSIDE RECORDS SUMMARY | 2024-10-13 11:41 | XMS_ITS | Clinical Summary ---
Author Organization [facility] Address [address] [place] [address] Phone Care Team Providers Care Public Address Announcer Name Role Phone Unavailable Primary Care Provider Unavailabl e Encounters Date Type Department Care Team Description 10/10/2024 External Device Data STL ABSTRACTION Provider, Abstract 10/09/2024 External Device Data STL ABSTRACTION Provider, Abstract 09/04/2024 External Device Data STL ABSTRACTION Provider, Abstract 08/14/2024 External Device Data STL ABSTRACTION Provider, Abstract 08/14/2024 External Device Data STL ABSTRACTION Provider, Abstract 07/24/2024 External Device Data STL ABSTRACTION Provider, Abstract 07/19/2024 1:45 PM GOVERNMENT DOCUMENTS LIBRARIAN - 07/19/2024 11:59 PM GOVERNMENT DOCUMENTS LIBRARIAN Hospital Encounter [facility] Maternal and Health [facility] [address] [place] [address] Quintin Corey MD Discharge Disposition: Home or [...] DETAIL SINGLE GEST Routine 07/19/2024 3:06 PM GOVERNMENT DOCUMENTS LIBRARIAN Advanced maternal age in multigravida, second trimester screening for malformation using ultrasonics from Last 3 Months Results * US OB DETAIL SINGLE GEST (07/19/2024 3:06 PM GOVERNMENT DOCUMENTS LIBRARIAN) Anatomical Region Laterality Modality Pelvis Ultrasound 07/19/2024 1:58 PM GOVERNMENT DOCUMENTS LIBRARIAN Narrative 07/19/2024 3:10 PM GOVERNMENT DOCUMENTS LIBRARIAN STL COMP ----- Pat. Name: JESUSITA SANTA Study Date: 07/19/2024 1:58pm Pat. NO: [id number] Referring MD: QUINTIN COREY MD Site: [facility] Manager: Bree Dahl RDMS : 1990 Age: 34 ----- INDICATION ----- Anatomy Survey Maternal Obesity (BMI<40) Complicating Advanced Maternal Age (AMA), Multigravida CODING ----- Diagnoses Z3A.21: Weeks of gestation O09.892: Supervision of other high risk pregnancies Z36.3: Encounter for screening for malformations Z3A.21: Weeks of gestation O99.212: Obesity complicating O09.522: Supervision of elderly multigravida Procedures 97496: Ultrasound, uterus, real time with image documentation, [...] 1 lb 0 oz EFW by Hadlock ([id number]) Head / Face / Neck Biometry: Oem Sales Manager 3.5 mm CM 4.8 mm 33% Nicolaides [...] view. RVOT view. LVOT view. 3-vessel view. 8-cemkeo-ysucctu view. Situs. Aortic arch view. Ductal arch [...] and date of were verified by the staff electronic warfare officer before the exam IMPRESSION ----- IUP at [...] Pat. Name:Carolee SANTA Date:07/19/2024 1:58pm Pat. NO: [id number] MD:QUINTIN COREY MD Site:Lianographer:Bree Dahl RDMS :1990Age:34 ----- INDICATION ----- Anatomy Survey Maternal Obesity (BMI<40) Complicating Advanced Maternal Age (AMA), Multigravida CODING ----- Diagnoses Z3A.21: Weeks of gestation O09.892: Supervision of other high riskpregnancies Z36.3: Encounter for screening formalformations Z3A.21: Weeks of gestation O99.212: Obesity complicating O09.522: Supervision of elderly multigravida Procedures 08855: Ultrasound, uterus, real time withimage documentation, and maternal evaluation plus detailed anatomic examination,transabdominal approach HISTORY ----- OB History 4. Para 2 MATERNAL ASSESSMENT ----- Physical Exam Initial weight 104 kg, 230 lb. Initial BMI 33.97kg/m METHOD ----- Transabdominal ultrasound examination ----- H[place] . Number of fetuses: 1 DATING ----- Method of dating:based on stated ARIANA GA by prior [id number] w + 2 d ARIANA by prior [...] 1 lb 0 oz EFW by Hadlock ([id number]) Head / Face / Neck Biometry: Oem Sales Manager 3.5 mm CM 4.8 mm 33%Nicolaides Inner [...] 4-chamber view. RVOT view. LVOT view. 3-vesselview. 1-wzhdah-ivxfjvc view. Situs. Aortic arch view. Ductal arch [...] and date of were verified by the staff electronic warfare officer beforethe exam IMPRESSION ----- IUP at 21w [...] Final Result from Last 3 Months Insurance [facility] [id number]
--- OUTSIDE RECORDS SUMMARY | 2024-10-13 11:41 | XMS_ITS | Clinical Summary ---
Author Organization [facility] Address [address] [place] [address] Phone Care Team Providers Care Planting Material Unloader Name Role Phone Provider, None Primary Care [...] Insurance MEDICAID [facility] Care Teams Planting Material Unloader Relationship Specialty Start Date End Date Provider, None [place] PCP - General 10/27/21
[2024-10-13 13:12] LABS: Hematocrit 29.7 % (37.0-47.0); Hemoglobin 9.2 g/dL (12.0-15.0); Mean Corpuscular Hemoglobin 24.9 pg (26-34); Mean Corpuscular Volume 80.3 fl (80-100); Mean Platelet Volume 9.2 fl (7.4-10.4); Platelet Count Result 355 k/mm3 (150-375); Red Cell Distribution Width 14.8 % (11.5-14.5); White Blood Count 7.1 K/mm3 (4.5-10.0)
[2024-10-13 13:21] LABS: Glucose 1 Hour PP 50gm Dose 123 mg/dL
[2024-10-13 14:03] LABS: HIV 1/2 Ab P24 Ag Result Negative (Negative)
[2024-10-13 14:13] LABS: Syphilis IgG/IgM Antibody Negative (Negative)
== END 2024-10-13 11:39 | disposition home or self-care (01) ==
LOC: ANHLAB 11:40
PROVIDERS: Referring Provider Nurse Practitioner Family; Visit Provider Nurse Practitioner Obstetrics & Gynecology
DX: Z34.90 Encounter for supervision of normal pregnancy, unspecified, unspecified trimester (principal); Z3A.00 Weeks of gestation of pregnancy not specified
CPT/HCPCS: 36415; 82947; 85027; 86593; 86703; G0432

== ENCOUNTER 2024-11-01 11:48 | Outpatient (CLI) | payer OTHER, SELFPAY ==
--- NOTE | ~2024-11-01 | US_ITS ---
US OB limited 11/01/2024 13:22 Indication: Evaluate amniotic fluid Procedure: Limited obstetrical ultrasound using transabdominal technique Comparison: Ultrasound dated 05/10/2024 Findings: There is a single living intrauterine in vertex presentation. heart rate 14 2 BPM. Placenta is posterior without previa. Amniotic fluid index is normal measuring 13.4 cm (normal range 7.7-24.9 cm). Impression: 1: Normal NILTON measures 13.4 cm. Reviewed, dictated and finalized at location B. Impression: 1: Normal NILTON measures 13.4 cm.
[2024-11-01 12:37] VITALS: BP 130/85; PULSE 103; PULSE 105; BMI 37.5
--- OUTSIDE RECORDS SUMMARY | 2024-11-01 12:39 | XMS_ITS | Clinical Summary ---
Author Organization [facility] Address [address] [place] [address] Phone Care Team Providers Care Continuous Absorption Process Operator Name Role Phone Unavailable Primary Care Provider Unavailabl e Encounters Date Type Department Care Team Description 10/11/2024 External Device Data STL ABSTRACTION Provider, Abstract 10/10/2024 External Device Data STL ABSTRACTION Provider, Abstract 10/09/2024 External Device Data STL ABSTRACTION Provider, Abstract 09/04/2024 External Device Data STL ABSTRACTION Provider, Abstract 08/14/2024 External Device Data STL ABSTRACTION Provider, Abstract 08/14/2024 External Device Data STL ABSTRACTION Provider, Abstract from Last 3 Months Social History Tobacco [...] patient's age to complete this topic Insurance [facility] [id number]
[2024-11-01 12:40] VITALS: BP 130/85; PULSE 103
[2024-11-01 12:57] LABS: Basophils Percent Auto 0.3 % (0.2-1.2); Eosinophils Absolute Auto 0.1 K/mm3 (0-0.3); Eosinophils Percent Auto 1.7 % (0-4.4); Hematocrit 28.1 % (37.0-47.0); Hemoglobin 8.5 g/dL (12.0-15.0); Immature Granulocyte Absolute 0.06 K/mm3 (0.00-0.031); Immature Granulocyte Percent A 0.9 % (0-0.5); Lymphocytes Absolute Auto 1.96 K/mm3 (0.9-3.2); Lymphocytes Percent Auto 29.7 % (18.3-44.2); Mean Corpuscular HGB Conc 30.2 g/dl (32-36); Mean Corpuscular Hemoglobin 23.4 pg (26-34); Mean Corpuscular Volume 77.2 fl (80-100); Mean Platelet Volume 9.4 fl (7.4-10.4); Monocytes Absolute Auto 0.6 K/mm3 (0.1-0.6); Monocytes Percent Auto 8.6 % (2.6-8.5); Neutrophils Absolute Auto 3.9 K/mm3 (1.3-6.7); Neutrophils Percent Auto 58.8 % (45.5-73.1); Platelet Count Result 342 k/mm3 (150-375); Red Blood Count 3.64 M/mm3 (4.2-5.4); Red Cell Distribution Width 15.1 % (11.5-14.5); White Blood Count 6.6 K/mm3 (4.5-10.0)
[2024-11-01 13:06] LABS: Creatinine Urine 339.2 mg/dL; Total Protein Urine Random 6 mg/dL; Ur Ttl Prot Creatinine Ratio 0.02 mg/mg (0-0.20)
[2024-11-01 13:07] LABS: Alanine Aminotransferase 13 U/L (6-35); Albumin Level 3.5 g/dL (3.5-5.1); Alkaline Phosphatase 117 U/L (38-126); Anion Gap 7 mmol/L (4-12); Aspartate Amino Transferase 20 U/L (14-36); Bilirubin,Total 0.3 mg/dL (0.2-1.3); Blood Urea Nitrogen 4 mg/dL (7-17); Calcium 8.4 mg/dL (8.4-10.2); Carbon Dioxide 18 mmol/L (22-30); Chloride 108 mmol/L (98-107); Estimated Glomerular Filt Rate > 60; Glucose 115 mg/dL (65-110); Sodium 133 mmol/L (137-145); Total Protein 6.9 g/dL (6.3-8.2); Uric Acid 2.9 mg/dL (2.5-7.5)
[2024-11-01 13:10] LABS: Add Urine Microscopic? YES; Appearance Urine Cloudy (Clear); Bacteria Urine 2+ /hpf; Bilirubin Urine Negative (Negative); Blood Urine Negative (Negative); Color Urine Dark Yellow (Yellow); Glucose Urine UA Trace mg/dL (Negative); Ketones Urine Trace mg/dL (Negative); Leukocyte Esterase Ur Negative LEU/UL (Negative); Need Manual Microscopic Reviewed; Nitrate Urine Negative (Negative); Protein Urine 1+ mg/dL (Negative); RBC Urine 0-2 /hpf (0-2); Specific Grav Ur 1.033 (1.001-1.035); Squamous Epithelial Cell Urine Many /hpf (Few); WBC Urine 21-50 /hpf (0-3); pH Urine 5.5 (5.0-9.0)
[2024-11-01 13:31] VITALS: BP 140/72; PULSE 99
[2024-11-01 13:47] VITALS: BP 139/72; PULSE 103
[2024-11-01 14:02] VITALS: BP 135/63; PULSE 89
--- NOTE | 2024-11-01 14:12 | PC.NURSE ---
Dr. Marie returned page and informed of reactive NST, BPP /, NILTON 13.4, and lab results including Hgb of 8.5 and K+ of 3.0. Orders received.
[2024-11-01 14:17] VITALS: BP 130/74; PULSE 95
[2024-11-01] MEDS: POTASSIUM CHLORIDE 20 MEQ ER TABLET PO ×2 (14:28→17:55)
[2024-11-01] MEDS: IRON SUCROSE COMPLEX 400 MG, IRON SUCROSE COMPLEX 100 MG in SODIUM CHLORIDE 0.9% IV 250 ML 78.57 MG IVPB (14:48)
== END 2024-11-01 18:36 | disposition home or self-care (01) ==
LOC: ANHOBOP 11:54 → ANHOBPP 11:56
PROVIDERS: Visit Provider Obstetrics & Gynecology
DX: O13.9 Gestational [pregnancy-induced] hypertension without significant proteinuria, unspecified trimester (principal); Z3A.00 Weeks of gestation of pregnancy not specified
CPT/HCPCS: 36415; 59025; 76815; 80053; 81001; 82570; 84156; 84550; 85025; 87086; 96365; 96366; 99199; A9270; J1756; J7050

== ENCOUNTER 2024-11-05 11:13 | Outpatient (CLI) | payer OTHER, MEDICAID, SELFPAY ==
--- NOTE | ~2024-11-05 | US_ITS ---
EXAMINATION: US OB follow up DATE: 11/05/2024 11:41 INDICATION: Internal care for excessive growth during third trimester . TECHNIQUE: Real-time ultrasound of the pelvis was performed. The interpreting radiologist was not pre sent for the study. COMPARISON: None. FINDINGS: There is a single living fetus in vertex presentation. The placenta is posterior. heart rate i s 154 beats per minute (bpm). The amniotic fluid index is 19.8 cm, which is normal. (5th%-95%: 7.7-2 4.9 cm at 36 weeks estimated gestational age). The following biometric data were obtained: BPD: 9.2 cm -> 37 weeks 2 days Head circumference: 33.6 cm -> 38 weeks 3 days Abdominal circumference: 32.8 cm -> 36 weeks 5 days Femur length: 6.9 cm -> 35 weeks 3 days These measurements are concordant. Head circumference to abdominal circumference ratio: 1.02 (normal range 0.92-1.05). Estimated weight: 2988 g (+/-) 448 g or 6 lbs. 9 oz. (+/-) 1 lb. 0 oz. IMPRESSION: 1. Single living fetus in vertex presentation with heart rate of 154 bpm. 2. Normal amniotic fluid index of 19.8 cm. 3. Estimated weight is 49th percentile by Hadlock criteria when 11/27/2024 is used as the estimat ed date of delivery (ARIANA). Please correlate with clinical information or earlier ultrasounds for most accurate ARIANA. Reviewed, dictated and finalized at location A. IMPRESSION: 1. Single living fetus in vertex presentation with heart rate of 154 bpm. 2. Normal amniotic fluid index of 19.8 cm. 3. Estimated weight is 49th percentile by Hadlock criteria when 11/27/2024 is used as the estimated date of delivery (ARIANA). Please correlate with clinical information or earlier ultrasounds for most accurate ARIANA.
== END 2024-11-05 11:14 | disposition home or self-care (01) ==
LOC: MICIMG 11:14
PROVIDERS: PCP Obstetrics & Gynecology; Visit Provider Obstetrics & Gynecology
DX: O36.60X0 Maternal care for excessive fetal growth, unspecified trimester, not applicable or unspecified (principal); Z3A.00 Weeks of gestation of pregnancy not specified
CPT/HCPCS: 76816

== ENCOUNTER 2024-11-06 16:02 | Inpatient (IN) | payer OTHER, MEDICAID, SELFPAY ==
[2024-11-06] VITALS (20 sets, daily range): BP systolic 116–152; BP diastolic 60–92; PULSE 92–110; RESP 18–20; TEMP 36.4; BMI 40.6
--- OUTSIDE RECORDS SUMMARY | 2024-11-06 16:45 | XMS_ITS | Clinical Summary ---
Author Organization [facility] Address [address] [place] [address] Phone Care Team Providers Care Machine Heel Builder Name Role Phone Provider, None Primary Care [...] 8:08 AM CDT Height 175.3 cm (5' 9) 10/27/2021 8:08 AM CDT Body Mass Index 27.32 10/27/2021 8:08 AM CDT Plan of Treatment Health Maintenance Due Date Last Done Comments Hepatitis C Virus (HCV) Screening 1988 TdaP Immunization 1988 Hepatitis B Immunization (1 of 3 - 19+ 3-dose series) 2007 SARS-COV-2 Immunization ( - 2023-25 season) 2024 Influenza Immunization (Season Ended) 2025 Respiratory Syncytial Virus (RSV) Immunization (Adult) (1 - 1-dose 75+ series) 2063 DTaP/Tdap/Td Immunization Discontinued 2004, 01/26/1994, 03/24/1989, Additional history exists Human Papillomavirus (HPV) Immunization Aged Out No longer eligible based on patient's age to complete this topic Meningococcal Immunization (ACWY) Aged Out No longer eligible based on patient's age to complete this topic Pneumococcal Immunization Combined Aged Out No longer eligible based on patient's age to complete this topic Rotavirus Immunization Aged Out No lo nger eligible based on patient's age to complete this topic Insurance MEDICAID [facility] Care Teams Machine Heel Builder Relationship Specialty Start Date End Date Provider, None [place] PCP - General 10/27/21
--- OUTSIDE RECORDS SUMMARY | 2024-11-06 16:45 | XMS_ITS | Clinical Summary ---
Author Organization [facility] Address [address] [place] [address] Phone Care Team Providers Care Childcare Teacher Name Role Phone Unavailable Primary Care Provider [...] patient's age to complete this topic Insurance [facility] [id number]
[2024-11-06 17:17] LABS: Basophils Percent Auto 0.3 % (0.2-1.2); Eosinophils Absolute Auto 0.1 K/mm3 (0-0.3); Eosinophils Percent Auto 1.4 % (0-4.4); Hemoglobin 9.2 g/dL (12.0-15.0); Immature Granulocyte Absolute 0.13 K/mm3 (0.00-0.031); Immature Granulocyte Percent A 1.6 % (0-0.5); Lymphocytes Absolute Auto 2.05 K/mm3 (0.9-3.2); Lymphocytes Percent Auto 25.6 % (18.3-44.2); Mean Corpuscular HGB Conc 30.7 g/dl (32-36); Mean Corpuscular Hemoglobin 23.7 pg (26-34); Mean Corpuscular Volume 77.3 fl (80-100); Mean Platelet Volume 9.2 fl (7.4-10.4); Monocytes Absolute Auto 0.7 K/mm3 (0.1-0.6); Neutrophils Percent Auto 62.1 % (45.5-73.1); Platelet Count Result 296 k/mm3 (150-375); Red Blood Count 3.88 M/mm3 (4.2-5.4); Red Cell Distribution Width 16.7 % (11.5-14.5)
[2024-11-06 17:27] LABS: Alanine Aminotransferase 10 U/L (6-35); Albumin Level 3.6 g/dL (3.5-5.1); Alkaline Phosphatase 119 U/L (38-126); Anion Gap 7 mmol/L (4-12); Aspartate Amino Transferase 19 U/L (14-36); Bilirubin,Total 0.2 mg/dL (0.2-1.3); Blood Urea Nitrogen 7 mg/dL (7-17); Carbon Dioxide 19 mmol/L (22-30); Chloride 107 mmol/L (98-107); Estimated Glomerular Filt Rate > 60; Glucose 89 mg/dL (65-110); Potassium 3.5 mmol/L (3.4-5.0); Sodium 133 mmol/L (137-145); Total Protein 7.3 g/dL (6.3-8.2); Uric Acid 3.2 mg/dL (2.5-7.5)
--- NOTE | 2024-11-06 17:29 | WPDANESEPP ---
Anes - Eval Pre Procedure Procedure: labor epidural Date/Time: 11/06/24 17:29 Surgeon: josé Preop Diagnosis: pain during labor Pre Op Diagnosis: IOL Patient Data Age: 34 Gender: F Height: Weight: Last Vital Signs Pulse 95 11/06/24 17:16 BP 130/64 11/06/24 17:16 Allergies Allergy/AdvReac Type Severity Reaction Status Date / Time No Known Allergies Allergy Verified 11/01/24 15:40 Home Medications ?Medication ?Instructions ?Recorded ?Confirmed ?Type aspirin 81 mg tablet,delayed 81 mg PO DAILY 06/20/24 11/01/24 History release vitamin#30 30 mg iron-10 1 cap PO DAILY 06/20/24 11/01/24 History mg iron-folic acid 1 mg-omg3 capsule famotidine 20 mg tablet (Pepcid) 20 mg PO DAILY 09/06/24 11/01/24 History RSV vac, preF A and preF B(PF) 120 0.5 ml IM ONCE #1 ea 10/18/24 11/01/24 Rx mcg/0.5 mL IM solution (Abrysvo (PF)) ferrous sulfate 325 mg (65 mg 325 mg PO DAILY 10/18/24 11/01/24 History iron) tablet diphenhydramine HCl 25 mg capsule 25 mg PO QHS PRN sleep 11/01/24 11/01/24 History (Benadryl) potassium chloride 20 mEq 20 meq PO BID #2 tabs 11/01/24 11/01/24 Rx tablet,extended release (K-Tab) Laboratory Tests 11/06/24 11/06/24 16:40 16:40 WBC 8.0 K/mm3 (4.5-10.0) RBC 3.88 L M/mm3 (4.2-5.4) Hgb 9.2 L g/dL (12.0-15.0) Hct 30.0 L % (37.0-47.0) MCV 77.3 L fl (80-100) MCH 23.7 L pg (26-34) MCHC 30.7 L g/dl (32-36) RDW 16.7 H % (11.5-14.5) Plt Count 296 k/mm3 (150-375) MPV 9.2 fl (7.4-10.4) Immature Gran % (Auto) 1.6 H % (0-0.5) Neut % (Auto) 62.1 % (45.5-73.1) Lymph % (Auto) 25.6 % (18.3-44.2) [place] % (Auto) 9.0 H % (2.6-8.5) Eos % (Auto) 1.4 % (0-4.4) Baso % (Auto) 0.3 % (0.2-1.2) Lymph # (Auto) 2.05 K/mm3 (0.9-3.2) [place] # (Auto) 0.7 H K/mm3 (0.1-0.6) Eos # (Auto) 0.1 K/mm3 (0-0.3) Baso # (Auto) 0.0 K/mm3 (0.0-0.1) Abs Immat Gran (auto) 0.13 H K/mm3 (0.00-0.031) Absolute Neuts (auto) 5.0 K/mm3 (1.3-6.7) Absolute Nucleated RBC 0.000 K/mm3 (0.0-0.012) Nucleated RBC % 0.0 % (0.0-0.2) Sodium 133 L mmol/L (137-145) Potassium 3.5 mmol/L (3.4-5.0) Chloride 107 mmol/L (98-107) Carbon Dioxide 19 L mmol/L (22-30) Anion Gap 7 mmol/L (4-12) BUN 7 mg/dL (7-17) Creatinine 0.64 L mg/dL (0.7-1.0) Estim Creat Clear Calc Not Reportable Estimated GFR > 60 (59 - ) Glucose 89 mg/dL (65-110) Uric Acid Cancelled 3.2 mg/dL (2.5-7.5) Calcium 9.0 mg/dL (8.4-10.2) Total Bilirubin 0.2 mg/dL (0.2-1.3) AST 19 U/L (14-36) ALT 10 U/L (6-35) Alkaline Phosphatase 119 U/L (38-126) Total Protein 7.3 g/dL (6.3-8.2) Albumin 3.6 g/dL (3.5-5.1) HIV 1&2 Ab/P24 Ag 4thGn Pending Blood Type Pending Antibody Screen Pending Patient hx anesthesia problems: none Family hx anesthesia problems: none Results Review: All pre-operative results and documents have been reviewed as part of the pre-operative evaluation. [facility] Past Medical History Medical History (Updated 11/06/24 @ 17:30 by April Ash CRNA) IUP (intrauterine ), incidental Anxiety Anemia Family History Family History (Reviewed 11/01/24 @ 11:23 by Refugio Bansal [facility]) Father Hypertension Mother Diabetes mellitus Hypertension Depression Grandparent Diabetes mellitus Depression Social History Social History (Reviewed 11/01/24 @ 11:23 by Refugio Bansal [facility]) Smoking packs per day: 1 Smoking cigarettes per day: 20.0 Smoking status: Former smoker Tobacco type: cigarettes Alcohol intake: former Drinks per week: 1 Alcohol use details: once a month maybe one drink Substance use: current Substance use type: marijuana Last use: 10/28/24 Do You Feel Safe in your Home?: Yes Lack of Transportation: No Lack of Food: Never True Current Housing: I Have Housing Concerned About Future Housing: No Difficulty Paying Gas/Electric Bills: No Difficulty Paying for Meds: No Currently Unemployed: No Education: High School Diploma/GED Difficulty w/ Childcare or Family Care: No Spiritual care concerns: No Exam Day of Procedure 11/06/24 17:29
[2024-11-06 18:06] LABS: Syphilis IgG/IgM Antibody Non-Reactive (Nonreactive)
[2024-11-06 18:07] LABS: HIV 1/2 Ab P24 Ag Result Negative (Negative)
[2024-11-06] MEDS: miSOPROStol 25 MCG TABLET BUCCAL ×2 (18:57→23:06)
[2024-11-06] MEDS: FAMOTIDINE 20 MG TABLET PO (23:42)
[2024-11-07] VITALS (76 sets, daily range): BP systolic 105–145; BP diastolic 18–122; PULSE 42–104; RESP 16–22; TEMP 36.1–36.6; O2SAT 92–100
[2024-11-07] MEDS: miSOPROStol 25 MCG TABLET BUCCAL (03:19)
--- NOTE | 2024-11-07 05:21 | LDADM ---
This patient, Jesusita Granger, was admitted to Labor/Delivery/Recovery 102 on 11/06/24 at 16:02. Plans for labor, pain management and were discussed with patient. Patient/family oriented to hospital policies and general routines including ID bracelet, bed and alarms, visiting hours, pain management, procedures, bathroom and other care routines, personal items, smoking policy, room service/diet and guest tray routines, security routines, and visiting hours. Patient/Family are encouraged to report perceived risks to care and to ask questions if they do not understand what they are told or what they should do. See [facility]BI[facility] for further documentation.
[2024-11-07] MEDS: LACTATED RINGERS 1,000 ML 125 ML IV CONT (08:46)
[2024-11-07] MEDS: OXYTOCIN 30 UNITS/NS 500 ML 30 UNITS/500 ML BAG IV CONT (08:47)
--- NOTE | 2024-11-07 09:27 | PM.IMHP ---
H&P: HPI History of Present Illness Date/Time: 11/07/24 09:27 Chief Complaint: induction of labor Narrative: patient is a 34-year-old at 37 weeks with an EDC of 11/27/2024 consistent with last period. She is admitted today for induction of labor due to gestational hypertension. She denies any severe headache scotomata or right upper quadrant pain. She was recommended for induction of labor due to the gestational hypertension. course also significant for anemia. History of anxiety/depression. Marriage counseling. 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 Declined aneuploid testing.. Review of Systems Review of Systems: All systems reviewed & are unremarkable except as noted in HPI and below Constitutional: Constitutional: Reports no additional constitutional complaints and Denies headache(s) Eyes: Eyes: Denies spots in vision ENT: Reports system reviewed and no additional complaints, except as documented and Denies headache(s) Cardiovascular: Cardiovascular: Denies chest pain and Denies dyspnea Respiratory: Respiratory: Denies dyspnea Gastrointestinal: Gastrointestinal: Reports no additional gastrointestinal complaints Genitourinary: Genitourinary: Reports amenorrhea Musculoskeletal: Musculoskeletal: Reports no additional musculoskeletal complaints Integumentary/Breasts: Skin/Breast: Denies breast mass and Denies rash Neurologic: Denies headache(s) Psychiatric: Psychiatric: Reports no additional psychiatric complaints [facility] Past Medical History Medical History (Updated 11/07/24 @ 09:33 by Quintin Marie MD) IUP (intrauterine ), incidental Anxiety Anemia Family History Family History Father Hypertension Mother Diabetes mellitus Hypertension Depression Grandparent Diabetes mellitus Depression Social History Social History Smoking packs per day: 1 Smoking cigarettes per day: 20.0 Smoking status: Never smoker Tobacco type: cigarettes Alcohol intake: former Drinks per week: 1 Alcohol use details: once a month maybe one drink Substance use: current Substance use type: marijuana Last use: 10/28/24 Do You Feel Safe in your Home?: Yes Lack of Transportation: No Lack of Food: Never True Current Housing: I Have Housing Concerned About Future Housing: No Difficulty Paying Gas/Electric Bills: No Difficulty Paying for Meds: No Currently Unemployed: No Education: Don't Know Difficulty w/ Childcare or Family Care: No Spiritual care concerns: No Meds Home Medications and Allergies Home Medications ?Medication ?Instructions ?Recorded ?Confirmed ?Type aspirin 81 mg tablet,delayed 81 mg PO DAILY 06/20/24 11/01/24 History release vitamin#30 30 mg iron-10 1 cap PO DAILY 06/20/24 11/01/24 History mg iron-folic acid 1 mg-omg3 capsule famotidine 20 mg tablet (Pepcid) 20 mg PO DAILY 09/06/24 11/06/24 History RSV vac, preF A and preF B(PF) 120 0.5 ml IM ONCE #1 ea 10/18/24 11/01/24 Rx mcg/0.5 mL IM solution (Abrysvo (PF)) ferrous sulfate 325 mg (65 mg 325 mg PO DAILY 10/18/24 11/06/24 History iron) tablet diphenhydramine HCl 25 mg capsule 25 mg PO QHS PRN sleep 11/01/24 11/06/24 History (Benadryl) potassium chloride 20 mEq 20 meq PO BID #2 tabs 11/01/24 11/01/24 Rx tablet,extended release (K-Tab) Allergies Allergy/AdvReac Type Severity Reaction Status Date / Time No Known Allergies Allergy Verified 11/06/24 21:58 Vital Signs Vital Signs - 24 hr 11/06/24 17:11 11/06/24 17:16 11/06/24 17:31 Temperature Pulse Rate 101 H 95 99 Respiratory Rate Blood Pressure 123/72 130/64 132/70 Oxygen Delivery 11/06/24 17:46 11/06/24 18:01 11/06/24 18:16 Temperature Pulse Rate 92 93 97 Respiratory Rate Blood Pressure 126/77 128/64 130/60 Oxygen Delivery 11/06/24 18:31 11/06/24 19:00 11/06/24 19:01 Temperature 97.6 F Pulse Rate 103 H 96 Respiratory Rate 20 Blood Pressure 131/78 143/78 H Oxygen Delivery 11/06/24 19:17 11/06/24 19:31 11/06/24 19:46 Temperature Pulse Rate 104 H 97 93 Respiratory Rate Blood Pressure 136/64 123/63 141/79 H Oxygen Delivery 11/06/24 20:02 11/06/24 20:16 11/06/24 20:32 Temperature Pulse Rate 100 93 104 H Respiratory Rate Blood Pressure 136/76 147/85 H 152/92 H Oxygen Delivery 11/06/24 20:47 11/06/24 21:02 11/06/24 21:17 Temperature Pulse Rate 106 H 110 H 99 Respiratory Rate Blood Pressure 149/65 H 149/82 H 149/71 H Oxygen Delivery 11/06/24 22:03 11/06/24 23:00 11/07/24 01:52 Temperature 97.6 F Pulse Rate 101 H 101 H Respiratory Rate 18 Blood Pressure 116/66 145/18 H Oxygen Delivery 11/07/24 02:02 11/07/24 02:31 11/07/24 03:01 Temperature Pulse Rate 93 91 86 Respiratory Rate Blood Pressure 105/61 115/64 130/76 Oxygen Delivery 11/07/24 03:30 11/07/24 05:21 11/07/24 06:14 Temperature 97.8 F Pulse Rate 84 Respiratory Rate 16 Blood Pressure 134/61 Oxygen Delivery Room Air 11/07/24 07:01 11/07/24 08:52 11/07/24 08:53 Temperature 97.2 F L Pulse Rate 91 104 H Respiratory Rate 22 H Blood Pressure 131/75 129/70 Oxygen Delivery 11/07/24 09:01 Temperature Pulse Rate 100 Respiratory Rate Blood Pressure 138/72 Oxygen Delivery Exam Const: General: no acute distress Eyes: General: appearance normal, both eyes and all related structures Resp: Effort & Inspection: normal respiratory effort Cardio: Rate: regular rate GI: Other: Gravid no fundal tenderness no right upper quadrant pain Skin: General skin exam: no rashes or lesions noted Neuro: Cognition (Neuro): normal cognition Extrem: General: normal to inspection Psych: Mental Status: mental status grossly normal H&P: Results Labs Labs: Short CBC 11/06/24 Range/Units 16:40 WBC 8.0 (4.5-10.0) K/mm3 Hgb 9.2 L (12.0-15.0) g/dL Hct 30.0 L (37.0-47.0) % Plt Count 296 (150-375) k/mm3 BMP 11/06/24 16:40 Sodium 133 L Potassium 3.5 Chloride 107 Carbon Dioxide 19 L BUN 7 Creatinine 0.64 L Glucose 89 Calcium 9.0 Liver Function 06/17/25 Range/Units 16:40 Total Bilirubin 0.2 (0.2-1.3) mg/dL AST 19 (14-36) U/L ALT 10 (6-35) U/L Alkaline Phosphatase 119 (38-126) U/L Albumin 3.6 (3.5-5.1) g/dL Assessment and Plan Assessment and plan (1) Gestational hypertension: Code(s): O13.9 - Gestational [-induced] hypertension without significant proteinuria, unspecified trimester Status: Acute Assessment and Plan: 1. Admit 2. PIH labs on admission. 3. Plan for cytotec and then pitocin.
--- NOTE | 2024-11-07 09:36 | PM.OBPNVD ---
OB - PN: Subj Subjective Date/time seen: 11/07/24 09:36 Interval history: FHT 135, Cat1, cervix 2/60/-3, AROM clear. Start Pitocin. OB - PN: Obj Data Labs 11/06/24 16:40 11/06/24 16:40 Labs: Laboratory Results - last 24 hr 11/06/24 11/06/24 16:40 16:40 WBC 8.0 RBC 3.88 L Hgb 9.2 L Hct 30.0 L MCV 77.3 L MCH 23.7 L MCHC 30.7 L RDW 16.7 H Plt Count 296 MPV 9.2 Immature Gran % (Auto) 1.6 H Neut % (Auto) 62.1 Lymph % (Auto) 25.6 [place] % (Auto) 9.0 H Eos % (Auto) 1.4 Baso % (Auto) 0.3 Lymph # (Auto) 2.05 [place] # (Auto) 0.7 H Eos # (Auto) 0.1 Baso # (Auto) 0.0 Abs Immat Gran (auto) 0.13 H Absolute Neuts (auto) 5.0 Absolute Nucleated RBC 0.000 Nucleated RBC % 0.0 Sodium 133 L Potassium 3.5 Chloride 107 Carbon Dioxide 19 L Anion Gap 7 BUN 7 Creatinine 0.64 L Estim Creat Clear Calc Not Reportable Estimated GFR > 60 Glucose 89 Uric Acid Cancelled 3.2 Calcium 9.0 Total Bilirubin 0.2 AST 19 ALT 10 Alkaline Phosphatase 119 Total Protein 7.3 Albumin 3.6 Syphilis IgG/IgM Ab Non-reactive HIV 1&2 Ab/P24 Ag 4thGn Negative Blood Type A Positive Antibody Screen Negative OB - PN A/P Time Spent With Patient Time: Total time spent is greater than 50% in coordination of care (as documented) at patient's floor/unit and/or counseling patient:
--- NOTE | 2024-11-07 10:54 | PM.OBPNVD ---
OB - PN: Subj Subjective Date/time seen: 11/07/24 10:54 Interval history: FHT 135 category 2, decelerations improved with position change, IUPC placed, cervix 60/-2. OB - PN: Obj Data Labs 11/06/24 16:40 11/06/24 16:40 Labs: Laboratory Results - last 24 hr 11/06/24 11/06/24 16:40 16:40 WBC 8.0 RBC 3.88 L Hgb 9.2 L Hct 30.0 L MCV 77.3 L MCH 23.7 L MCHC 30.7 L RDW 16.7 H Plt Count 296 MPV 9.2 Immature Gran % (Auto) 1.6 H Neut % (Auto) 62.1 Lymph % (Auto) 25.6 [place] % (Auto) 9.0 H Eos % (Auto) 1.4 Baso % (Auto) 0.3 Lymph # (Auto) 2.05 [place] # (Auto) 0.7 H Eos # (Auto) 0.1 Baso # (Auto) 0.0 Abs Immat Gran (auto) 0.13 H Absolute Neuts (auto) 5.0 Absolute Nucleated RBC 0.000 Nucleated RBC % 0.0 Sodium 133 L Potassium 3.5 Chloride 107 Carbon Dioxide 19 L Anion Gap 7 BUN 7 Creatinine 0.64 L Estim Creat Clear Calc Not Reportable Estimated GFR > 60 Glucose 89 Uric Acid Cancelled 3.2 Calcium 9.0 Total Bilirubin 0.2 AST 19 ALT 10 Alkaline Phosphatase 119 Total Protein 7.3 Albumin 3.6 Syphilis IgG/IgM Ab Non-reactive HIV 1&2 Ab/P24 Ag 4thGn Negative Blood Type A Positive Antibody Screen Negative OB - PN A/P Time Spent With Patient Time: Total time spent is greater than 50% in coordination of care (as documented) at patient's floor/unit and/or counseling patient:
--- NOTE | 2024-11-07 17:49 | PM.OBPRVD ---
OB - Vaginal Delivery Note Procedure Delivery date: 11/07/24 Events: Gestational Hypertension Induction method: Per Misoprostol Protocol and Per Pitocin Protocol Delivery augmentation: Rupture of Membranes Delivery monitor: External FHT and Internal Uterine Route of delivery: Episiotomy description: None Laceration Description: None Specimen: No Quantitative Blood Loss (ml): 150 Anesthesia type: Epidural Disposition: Floor Complications: No immediate complications Narrative: She was admitted for MIL. She received 3 doses cytotec. She had AROM clear. Pitocin started. She received epidural on request. She progressed to active labor and soon to complete. [place] Baby Date of : 11/07/24 Time of : 17:38 Gestational Age by Date: 35 gender: Female presentation: vertex position: Left Occiput Anterior Placenta delivery description: Spontaneous Cord Vessel Description: 3 Vessels and Delayed Cord Clamping score one minute: 8 score five minutes: 9
[2024-11-07] MEDS: OXYTOCIN 30 UNITS/NS 500 ML 30 UNITS/500 ML BAG 125 UNITS IV CONT (18:11)
[2024-11-07] MEDS: IBUPROFEN 600 MG TABLET PO (21:45)
[2024-11-07] MEDS: ACETAMINOPHEN 325 MG TABLET 650 MG PO (21:45)
[2024-11-08 01:30] VITALS: BP 128/74; PULSE 86; RESP 20; TEMP 36.6; O2SAT 98
[2024-11-08 05:59] LABS: Hematocrit 29.2 % (37.0-47.0); Hemoglobin 8.8 g/dL (12.0-15.0)
[2024-11-08] MEDS: FAMOTIDINE 20 MG TABLET PO (06:40)
[2024-11-08 07:30] VITALS: BP 129/69; PULSE 76; RESP 18; TEMP 36.7; O2SAT 100
--- NOTE | 2024-11-08 07:31 | WPDANLDPN2 ---
Anes-Prog Note L&D Date/Time: 11/08/24 07:31 Comfortable throughout: labor and delivery Neuraxial method: epidural Epidural/Spinal procedure site: clean & non-tender Neuro status: Neuro function grossly intact. Cardiovascular status: normal Respiratory status: normal Airway patency: baseline Mental status: baseline Post-Op hydration status: normal Vital Signs: Last Vital Signs Temp 36.6 C 11/08/24 01:30 Pulse 86 11/08/24 01:30 Resp 20 11/08/24 01:30 BP 128/74 11/08/24 01:30 Pulse Ox 98 11/08/24 01:30 O2 Del Method Room Air 11/07/24 20:15 Pain score (VAS): 06/01 Post-procedural complaints: none Patient feedback: Patient satisfied with anesthetic care.
[2024-11-08] MEDS: POLYSACCHARIDE IRON COMPLEX 150 MG CAPSULE PO ×2 (08:21→17:21)
[2024-11-08] MEDS: MULTIVIT/MIN/PREN/FOL AC/IRON TABLET 1 TAB PO (08:21)
[2024-11-08] MEDS: ACETAMINOPHEN 325 MG TABLET 650 MG PO ×2 (08:21→17:21)
[2024-11-08] MEDS: DOCUSATE SODIUM 100 MG CAPSULE PO ×2 (08:22→17:22)
[2024-11-08 13:02] VITALS: BP 129/77; PULSE 83; RESP 16; TEMP 36.7; O2SAT 99
--- NOTE | 2024-11-08 16:25 | P.PNOB_ITS ---
OB - PN: Subj Subjective Date/time seen: 11/08/24 16:25 Interval history: she denies any headache scotomata or right upper quadrant pain. Lochia decreasing. Patient comments: pain well controlled, tolerating diet and other (Decreasing lochia.) baby status: doing well and nursing well OB - PN: Obj Data Labs 11/08/24 05:10 11/06/24 16:40 Labs: Laboratory Results - last 24 hr 11/08/24 05:10 Hgb 8.8 L Hct 29.2 L OB - PN A/P Assessment and Plan (1) Vaginal delivery: Code(s): O80 - Encounter for full-term uncomplicated delivery Status: Acute Assessment and Plan: doing well. Normal blood pressures. She is considering discharge today. Plan day: 1 Plan: routine care Comments: Patient doing well. Time Spent With Patient Time: Total time spent is greater than 50% in coordination of care (as documented) at patient's floor/unit and/or counseling patient: Exam 2 Psych: Affect: normal affect Other: Abd: fundus firm below umbilicus, nontender Perineum: healing Ext: nontender
--- NOTE | 2024-11-08 16:26 | P.DS_ITS ---
DS: Admitting Diagnosis Discharge Date 11/09/24 <Jovana Albarran APRN - Last Filed: 11/09/24 15:45> Admitting Diagnosis Induction of labor gestational hypertension <Quintin Marie MD - Last Filed: 11/08/24 16:32> DS: Discharge Diagnosis Discharge Diagnosis (1) Vaginal delivery: Code(s): O80 - Encounter for full-term uncomplicated delivery <Quintin Marie MD - Last Filed: 11/08/24 16:32> Status: Acute <Quintin Marie MD - Last Filed: 11/08/24 16:32> OB - DS: Summary Hospital Course Hospital Course: she was admitted for medical induction of labor. She had Cytotec and then assisted rupture of membranes and Pitocin augmentation. She had an uncomplicated vaginal delivery. she did well. Blood pressures were normal. No PIH symptoms. Prior to discharge she had adequate pain control was ambulating well baby was doing well. She was tolerating regular food. <Quintin Marie MD - Last Filed: 11/08/24 16:32> OB Procedures : NST, PIH Mgmt and Ultrasound <Quintin Marie MD - Last Filed: 11/08/24 16:32> OB Procedures Intrapartum: Spontaneous Vag Delivery <Quintin Marie MD - Last Filed: 11/08/24 16:32> OB Procedures: : None <Jovana Albarran APRN - Last Filed: 11/09/24 15:45> Peripartum Data Laceration Description: None <Quintin Marie MD - Last Filed: 11/08/24 16:32> Episiotomy description: None <Quintin Marie MD - Last Filed: 11/08/24 16:32> Time Spent with Patient Time attestation: Total time spent providing and/or coordinating discharge services: <Quintin Marie MD - Last Filed: 11/08/24 16:32> DS: Data Data Completed and Pending Labs on day of discharge: Labs from last 24 hours 11/08/24 05:10 Hgb 8.8 L Hct 29.2 L <Quintin Marie MD - Last Filed: 11/08/24 16:32> Discharge Plan Discharge Attending physician on discharge: Quintin Marie <Quintin Marie MD - Last Filed: 11/08/24 16:32> Quintin Marie <Jovana Albarran APRN - Last Filed: 11/09/24 15:45> Consulting providers: April Ash <Quintin Marie MD - Last Filed: 11/08/24 16:32> Discharging Clinician: Quintin Marie <Quintin Marie MD - Last Filed: 11/08/24 16:32> Quintin Marie <Jovana Albarran APRN - Last Filed: 11/09/24 15:45> Patient Disposition: Home <Quintin Marie MD - Last Filed: 11/08/24 16:32> Activity: may shower and pelvic rest <Quintin Marie MD - Last Filed: 11/08/24 16:32> may shower and pelvic rest <Jovana Albarran APRN - Last Filed: 11/09/24 15:45> Diet: regular <Quintin Marie MD - Last Filed: 11/08/24 16:32> regular <Jovana Alabrran APRN - Last Filed: 11/09/24 15:45> Discharge Instructions: Continue iron ferrous sulfate 325 mg twice a day. Continue daily vitamins. May take [id number] ibuprofen or Tylenol for pain. Follow directions on bottle. Education: Mom and Baby Guide Given to: Mother Follow-Up: Call your delivering provider's office for an appointment to be seen. Mom and baby should come to the [facility] for the follow-up appointment. Appointment Date/Time: November 10, 2024 at 9:00 am What to expect at your follow-up visit: Blood Pressure Check and Physical Assessment Call [phone] if you are unable to keep your appointment time. BREAST CARE: * Wear a snug supportive bra. * For engorgement discomfort: Breast Feeding: * Apply warm moist washcloths * Express milk as needed to relieve engorgement * Wear loose clothing * For sore nipples: * Identify correct latch-on * Apply warm moist washcloths before and after nursing * Air dry nipples after nursing * May apply Lansinoh cream to nipples PERINEAL CARE: * Until bleeding stops, use your denise bottle after urinating * Change your pad frequently throughout the day * You may take sitz baths several times a day (fill your bathtub with warm water and soak for 20 minutes.) Do NOT bathe in the water * No tub baths until seen by your physician - You may shower ACTIVITY: * Rest as much as possible. * Do not exercise or lift anything heavier than your baby (such as laundry or other children.) * Avoid stairs or driving as much as possible. * Do not put anything into the vagina. No douching, tampons, or sexual activity until seen by physician. NOTIFY PHYSICIAN IF YOU HAVE ANY QUESTIONS OR IF ANY OF THE FOLLOWING SYMPTOMS OCCUR: * If your perineum becomes red, swollen, or more painful than what you have experienced in the hospital. * If your vaginal bleeding becomes foul smelling. * If your vaginal bleeding becomes more heavy than a period or if your bleeding changes from pink to bright red. However, you may pass an occasional walnut- sized clot once or twice for the first week . * If you experience a sharp, shooting pain in you calves. * If you discover a hard, reddened area on your breast or if you experience flu- like symptoms. DIET: * Eat regular, well-balanced meals. * Drink plenty of fluids daily. <Quintin Marie MD - Last Filed: 11/08/24 16:32> Patient Language: [place]an <Quintin Marie MD - Last Filed: 11/08/24 16:32> Stand Alone Forms: General Discharge Information <Quintin Marie MD - Last Filed: 11/08/24 16:32> Follow-up/Referrals: Quintin Marie MD [Physician] - Call for Appointment <Quintin Marie MD - Last Filed: 11/08/24 16:32> Discharge Medications: Continued ferrous sulfate 325 mg (65 mg iron) tablet 325 mg PO DAILY PNV #[id number] 30 mg iron-10 mg iron-1 mg capsule 1 cap PO DAILY Discontinued famotidine [Pepcid] 20 mg tablet 20 mg PO DAILY Abrysvo (PF) 120 mcg/0.5 mL recon soln 0.5 ml IM ONCE Qty: 1 0RF Rx Instructions: as a single dose aspirin 81 mg tablet,delayed release (DR/EC) 81 mg PO DAILY diphenhydramine HCl [Benadryl] 25 mg capsule 25 mg PO QHS PRN (Reason: sleep) potassium chloride [K-Tab] 20 mEq tablet extended release 20 meq PO BID Qty: 2 0RF Patient Comments: Pt to take 11/01/24 and 11/02/24 and then stop <Quintin Marie MD - Last Filed: 11/08/24 16:32> Date of admission: 11/06/24 16:02 <Quintin Marie MD - Last Filed: 11/08/24 16:32> Primary Care Provider: UNKNOWN,DOCTOR <Quintin Marie MD - Last Filed: 11/08/24 16:32> Admitting Provider: Quintin Marie <Quintin Marie MD - Last Filed: 11/08/24 16:32> Attending physician on admission: Quintin Marie <Quitnin Marie MD - Last Filed: 11/08/24 16:32> Condition: Stable <Quintin Marie MD - Last Filed: 11/08/24 16:32>
--- NOTE | 2024-11-08 16:30 | PC.NURSE ---
Introductions were made, then consulted with patient to assess needs related to . Discussed with mother her?plans to feed?her and the?experience so far. Per mother she really would like to only pump and bottle feed and wishes to not put baby to breast. Mother is requesting an insurance pump and [facility] will provide her with a Medela Pump In Style. Instructions given on cleaning, care, usage, that there should be no pain, pumping schedule for milk production, collection, and storage of human milk. Patient was assessed for correct placement, flange size (nipples measured 22mm, will use size 27 flange), to pump for comfort and nipple stretching/stimulation for adequate milk production every 3 hours (8 times in 24 hours) 1-2 times at night. Parents are encouraged to record the pumping schedule on the feeding sheet. Resources provided for inpatient and outpatient services with the feeding sheet, mom/baby guide and name written on the communication board. Mother voiced understanding of information and will call if there is a request for assistance. Reported to the Primary RN.
[2024-11-08 17:26] VITALS: BP 130/80; PULSE 83
[2024-11-08 20:05] VITALS: BP 153/95; PULSE 74; RESP 18; TEMP 36.6; O2SAT 100
[2024-11-09] VITALS: BP 134/78
[2024-11-09 03:30] VITALS: BP 137/76
[2024-11-09] MEDS: ACETAMINOPHEN 325 MG TABLET 650 MG PO (03:45)
[2024-11-09] MEDS: IBUPROFEN 600 MG TABLET PO (03:45)
--- NOTE | 2024-11-09 07:44 | P.PNOB_ITS ---
OB - PN: Subj Subjective Date/time seen: 11/09/24 07:44 Interval history: she denies any headache scotomata or right upper quadrant pain. Lochia decreasing. Patient comments: pain well controlled, tolerating diet and flatus present baby status: doing well feeding status: breast and bottle feeding OB - PN: Obj Data Labs 11/08/24 05:10 11/06/24 16:40 OB - PN A/P Plan day: 2 Plan: discharge home Time Spent With Patient Time: Total time spent is greater than 50% in coordination of care (as documented) at patient's floor/unit and/or counseling patient: Review of Systems 2 Constitutional: Constitutional: Denies body ache(s), Denies chills, Denies fever(s) and Denies headache(s) Cardiovascular: Cardiovascular: Denies chest pain, Denies edema, Denies irregular heart rhythm, Denies claudication, Denies leg edema and Denies dyspnea Respiratory: Respiratory: Denies cough and Denies dyspnea Gastrointestinal: Gastrointestinal: Denies abdominal pain, Denies constipation, Denies GI cramping and Denies vomiting Genitourinary: Genitourinary: Denies abnormal vaginal bleeding Musculoskeletal: Musculoskeletal: Reports no additional musculoskeletal complaints Integumentary/Breasts: Skin/Breast: Reports system reviewed and no additional complaints, except as docu Neurologic: Reports system reviewed and no additional complaints, except as documented Psychiatric: Psychiatric: Reports no additional psychiatric complaints Exam 2 Const: General: cooperative, healthy appearing and comfortable HENMT: Head: normal to inspection Eyes: General: appearance normal, both eyes and all related structures Resp: Effort & Inspection: normal respiratory effort Auscultation: clear to auscultation bilaterally Cardio: Rate: regular rate Rhythm: regular rhythm GI: Inspection: normal to inspection Auscultation: normal bowel sounds : Other: fundus firm, below umbilicus nontender Psych: Affect: normal affect Other: Abd: fundus firm below umbilicus, nontender Perineum: healing Ext: nontender
[2024-11-09 09:00] VITALS: BP 142/98; PULSE 70; RESP 18; TEMP 36.7
[2024-11-09] MEDS: MULTIVIT/MIN/PREN/FOL AC/IRON TABLET 1 TAB PO (09:26)
[2024-11-09] MEDS: DOCUSATE SODIUM 100 MG CAPSULE PO (09:26)
[2024-11-09] MEDS: FAMOTIDINE 20 MG TABLET PO (09:26)
[2024-11-09] MEDS: POLYSACCHARIDE IRON COMPLEX 150 MG CAPSULE PO (09:26)
[2024-11-10 09:33] VITALS: BP 123/66; PULSE 72; RESP 18; TEMP 36.9; O2SAT 99
== END 2024-11-09 09:57 | disposition home or self-care (01) | DRG 807 ==
LOC: ANHLDR 16:11 → ANHOB2 11-07 21:10
PROVIDERS: Admitting Provider Obstetrics & Gynecology; Visit Provider Obstetrics & Gynecology
DX: O13.4 Gestational [pregnancy-induced] hypertension without significant proteinuria, complicating childbirth (principal); Z37.0 Single live birth; Z3A.37 37 weeks gestation of pregnancy
CPT/HCPCS: 36415; 80053; 84550; 85014; 85018; 85025; 86593; 86703; 86850; 86900; 86901; A9270; G0432; J2590; J2795; J7120